=== PATIENT | female | born 1970 | race Caucasian/White ===

== ENCOUNTER 2022-06-16 08:00 | Day surgery (SDC) | payer BC ==
[2022-06-16] MEDS ORDERED: Succinylcholine Chloride 100 MG/5 ML SYRINGE FS ONE (15:03)
[2022-06-16] MEDS ORDERED: Dexamethasone 20 MG/5 ML VIAL ONE (15:03)
[2022-06-16] MEDS ORDERED: Rocuronium Bromide 10 MG/ML (10ML VIAL) ONE (15:03)
[2022-06-16] MEDS ORDERED: GLYCOPYRROLATE/PF 0.2 MG/ML VIAL ONE (15:03)
[2022-06-16] MEDS ORDERED: PROPOFOL 200 MG/20 ML VIAL ONE (15:03)
[2022-06-16] MEDS ORDERED: NEOSTIGMINE 3 MG/3 ML SYR 3 MG/3 ML SYRINGE ONE (15:03)
[2022-06-16] MEDS ORDERED: Ketorolac Tromethamine 30 MG/ML VIAL ONE (15:03)
[2022-06-16] MEDS ORDERED: Ondansetron PF 4 MG/2 ML Vial ONE (15:03)
== END 2022-06-16 08:01 | disposition home or self-care (01) ==
LOC: SDC 08:00
PROVIDERS: ATTEND Surgery
PROC: 0DTJ4ZZ Resection of Appendix, Percutaneous Endoscopic Approach (ICD-10-PCS; principal; 2022-06-16)
DX: K35.80 Unspecified acute appendicitis (principal); F17.210 Nicotine dependence, cigarettes, uncomplicated; E66.9 Obesity, unspecified; Z68.35 Body mass index [BMI] 35.0-35.9, adult
CPT/HCPCS: 88304; A4649; C1776; J1100; J1885; J2405; J2704; J3490

== ENCOUNTER 2022-11-13 12:30 | Outpatient (CLI) | payer BC | END 2022-11-13 12:31 | disposition home or self-care (01) | LOC: PET 12:30 | PROVIDERS: ATTEND Internal Medicine Hematology & Oncology | DX: C19 Malignant neoplasm of rectosigmoid junction (principal); R59.0 Localized enlarged lymph nodes; R91.8 Other nonspecific abnormal finding of lung field | CPT/HCPCS: 78815; A9552 ==

== ENCOUNTER 2022-12-07 09:37 | Day surgery (SDC) | payer BC ==
[2022-12-07 10:20] LABS: #Eosinphils 0.2 thou/uL (0.0-0.7); #Monocytes 0.4 thou/uL (0.11-0.59); #Neutrophils 4.6 thou/uL (1.40-6.50); %Basophils 0.6 % (0.0-1.0); %Eosinophils 2.6 % (0.0-10.0); %Lymphocytes 22.9 % (21.0-51.0); %Monocytes 6.5 % (0.0-10.0); %Neutrophils 66.8 % (42.0-75.0); Hemoglobin 14.1 g/dL (12.0-16.0); Mean Corpuscular HGB CONC 31.3 g/dL (32.0-36.0); Mean Platelet Volume 9.7 fL (7.4-10.4); Platelet Count 227 10x3/uL (130-400); RBC Distribution Width 14.1 % (11.5-14.5); Red Blood Cell (RBC) Count 5.23 mill/uL (4.20-5.40); White Blood Cell (WBC) Count 6.8 10x3/uL (4.8-10.8)
[2022-12-07 10:27] LABS: PTT 29.1 sec (22.9-36.1); Prothrombin Time 13.2 sec (12.0-14.7)
[2022-12-07 13:28] VITALS: BP 135/93; TEMP 98.2
== END 2022-12-07 14:45 | disposition home or self-care (01) ==
LOC: CT 09:37
PROVIDERS: ATTEND Internal Medicine Hematology & Oncology
DX: C19 Malignant neoplasm of rectosigmoid junction (principal); C78.7 Secondary malignant neoplasm of liver and intrahepatic bile duct; R91.8 Other nonspecific abnormal finding of lung field
CPT/HCPCS: 32408; 71045; 77002; 85025; 85610; 85730; 88305; 88333; 88341; 88342

== ENCOUNTER 2023-03-05 08:45 | Outpatient (CLI) | payer BC | END 2023-03-05 08:46 | disposition home or self-care (01) | LOC: PET 08:45 | PROVIDERS: ATTEND Internal Medicine Hematology & Oncology | DX: C19 Malignant neoplasm of rectosigmoid junction (principal) | CPT/HCPCS: 78815; A9552 ==

== ENCOUNTER 2023-06-06 11:42 | Outpatient (CLI) | payer BC | END 2023-06-06 11:43 | disposition home or self-care (01) | LOC: SCSMRI 11:42 | PROVIDERS: ATTEND Radiology Radiation Oncology | DX: C79.31 Secondary malignant neoplasm of brain (principal); R51.9 Headache, unspecified; G93.9 Disorder of brain, unspecified | CPT/HCPCS: 70553 ==

== ENCOUNTER 2023-06-14 20:26 | Inpatient (IN) | payer BC ==
[2023-06-14 20:43] LABS: Analyzer IN Cardio ER; Base Excess (BEa) -8.6 mEq/L (-2.0 to +3.0); Carboxyhemoglobin (COHb) 0.9 gm% (0.0-3.0); Hematocrit-ABG 41 % (36.0-47.0); Hemoglobin (Hb) 13.9 g/dL (12.0-16.0); O2 Tension (PaO2), arterial 84.2 mmHg (80.0-100.0); Potassium - ABG Lab 4.25 mmol/L (3.70-5.30)
[2023-06-14 20:48] LABS: Actual Bicarbonate (HCO3a) 13.1 mEq/L (22-28); CO2 Tension 19.7 mmHg (35.0-45.0); Puncture Site RRA
[2023-06-14 20:49] LABS: ALV-art Gradient 147.855 mmHg (0-20)
[2023-06-14 21:06] LABS: Anion Gap 21 mmol/L (10-20); BUN (Urea Nitrogen) 90 mg/dL (9.8-20.1); Calc. Creatinine Clearance 0 mL/min (70-130); Calcium 7.8 mg/dL (7.8-10.44); Carbon Dioxide 10 mmol/L (22-29); Chloride 107 mmol/L (98-107); Estimated GFR 45; Potassium 4.6 mmol/L (3.5-5.1); Sodium 133 mmol/L (136-145)
[2023-06-14] MEDS ORDERED: Dextrose 5 %-0.45 % NaCl 1,000 ML IV PRN (21:07)
[2023-06-14] MEDS ORDERED: Dextrose 50% Abboject 50 ML SYRINGE SLOW IVP PRN (21:07)
[2023-06-14] MEDS ORDERED: D5 1/2 NS w/20 mEq KCL 1,000 ML IV PRN (21:07)
[2023-06-14] MEDS ORDERED: Electrolyte Replacement Protocol 1 EACH IVPB PRN (21:07)
[2023-06-14] MEDS ORDERED: Sodium Chloride 0.9% 1,000 ML IV PRN ×4 (21:07)
[2023-06-14] MEDS ORDERED: NS 0.9% w/ 20 MEQ KCL 1,000 ML IV PRN ×2 (21:07)
[2023-06-14 21:12] LABS: Critical Call Chemistry NUR.MBP@2111; Glucose 451 mg/dL (70-105)
[2023-06-14] MEDS ORDERED: HUMULIN R 100 UNITS in Sodium Chloride 0.9% 100 ML IVPB SCH (21:15)
[2023-06-14] MEDS ORDERED: Acetaminophen 650 MG Suppository PR PRN (21:42)
[2023-06-14] MEDS ORDERED: Acetaminophen 325 MG (10.15 ML) UDCUP PO PRN (21:42)
[2023-06-14 21:54] LABS: Hemoglobin A1c 11.2 % (4.0-6.0)
[2023-06-14 21:55] LABS: Anion Gap 19 mmol/L (10-20); BUN (Urea Nitrogen) 92 mg/dL (9.8-20.1); Calc. Creatinine Clearance 0 mL/min (70-130); Calcium 7.9 mg/dL (7.8-10.44); Carbon Dioxide 12 mmol/L (22-29); Chloride 107 mmol/L (98-107); Estimated GFR 46; Potassium 4.9 mmol/L (3.5-5.1); Sodium 133 mmol/L (136-145)
[2023-06-14 22:40] LABS: Glucose 440 mg/dL (70-105)
[2023-06-15 02:14] LABS: Anion Gap 14 mmol/L (10-20); BUN (Urea Nitrogen) 82 mg/dL (9.8-20.1); Calc. Creatinine Clearance 115 mL/min (70-130); Calcium 7.2 mg/dL (7.8-10.44); Carbon Dioxide 17 mmol/L (22-29); Chloride 111 mmol/L (98-107); Estimated GFR 67; Glucose 393 mg/dL (70-105); Potassium 4.1 mmol/L (3.5-5.1); Sodium 138 mmol/L (136-145)
[2023-06-15] MEDS ORDERED: Sodium Chloride 0.9% 1,000 ML IV SCH ×2 (02:30→03:30)
[2023-06-15 04:35] LABS: Hematocrit 35.9 % (36.0-47.0); Hemoglobin 12.4 g/dL (12.0-16.0); Manual Diff?? YES; Mean Corpuscular HGB CONC 34.5 g/dL (32.0-36.0); Mean Corpuscular Hemoglobin 28.6 pg (27.0-31.0); Mean Corpuscular Volume 82.7 fl (78.0-98.0); RBC Distribution Width 17.4 % (11.5-14.5); Red Blood Cell (RBC) Count 4.34 mill/uL (4.20-5.40); White Blood Cell (WBC) Count 5.7 10x3/uL (4.8-10.8)
[2023-06-15 04:47] LABS: Delete Auto Diff?? YES; Platelet Count 12 10x3/uL (130-400)
[2023-06-15 05:00] LABS: Phosphorus 2.6 mg/dL (2.3-4.7)
[2023-06-15 05:02] LABS: Anion Gap 13 mmol/L (10-20); BUN (Urea Nitrogen) 77 mg/dL (9.8-20.1); Calc. Creatinine Clearance 133 mL/min (70-130); Calcium 7.4 mg/dL (7.8-10.44); Carbon Dioxide 17 mmol/L (22-29); Chloride 111 mmol/L (98-107); Estimated GFR 80; Glucose 385 mg/dL (70-105); Magnesium 2.5 mg/dL (1.6-2.6); Potassium 4.2 mmol/L (3.5-5.1); Sodium 137 mmol/L (136-145)
[2023-06-15] MEDS ORDERED: Glucagon 1 MG/ML KIT IM PRN (05:21)
[2023-06-15] MEDS ORDERED: Dextrose 5% in Water 1,000 ML IV PRN (05:21)
[2023-06-15] MEDS ORDERED: Dextrose 50% Abboject 50 ML SYRINGE SLOW IVP PRN (05:21)
[2023-06-15 05:25] LABS: Band 17 % (5-11); Burr Cells SLIGHT = 2-5 cells HPF (0-1); CellaVision Operator ID lab.abc; Lymphocytes 3 % (21-51); Monocytes 6 % (0-10); Neutrophil 75 % (42-75); Nucleated RBC (Manual Ct) 3 % (0); Platelet Adequacy Comment Significant decrease; Smudge Cells 25.2 %; Total Cell Count 103; Toxic Granulation SLIGHT; Vacuoles SLIGHT
[2023-06-15] MEDS ORDERED: Insulin Glargine 30 UNITS/0.3 ML VIAL SC SCH (05:30)
[2023-06-15] MEDS: Lactated Ringer's 1,000 ML IV SCH ×4 (05:35→20:43)
[2023-06-15] MEDS: HumaLOG 300 UNITS/3 ML VIAL SC PRN ×5 (06:02→20:47)
[2023-06-15 07:14] LABS: Anion Gap 13 mmol/L (10-20); BUN (Urea Nitrogen) 74 mg/dL (9.8-20.1); Calc. Creatinine Clearance 140 mL/min (70-130); Calcium 7.6 mg/dL (7.8-10.44); Carbon Dioxide 18 mmol/L (22-29); Chloride 112 mmol/L (98-107); Estimated GFR 85; Glucose 360 mg/dL (70-105); Potassium 4.5 mmol/L (3.5-5.1); Sodium 138 mmol/L (136-145)
[2023-06-15] MEDS ORDERED: FLU VACC QS2023-24(6MOS UP)/PF 60 MCG/0.5 ML SYRINGE IM ONE (09:00)
[2023-06-15] MEDS: Famotidine/PF 20 mg/2ml Vial SLOW IVP SCH ×2 (10:57→20:44)
[2023-06-15 14:29] LABS: Lactic Acid 2.9 mmol/L (0.5-2.2)
[2023-06-15 14:33] LABS: Anion Gap 14 mmol/L (10-20); BUN (Urea Nitrogen) 76 mg/dL (9.8-20.1); Calc. Creatinine Clearance 137 mL/min (70-130); Calcium 7.7 mg/dL (7.8-10.44); Carbon Dioxide 16 mmol/L (22-29); Chloride 112 mmol/L (98-107); Estimated GFR 83; Glucose 343 mg/dL (70-105); Magnesium 2.4 mg/dL (1.6-2.6); Potassium 4.2 mmol/L (3.5-5.1); Sodium 138 mmol/L (136-145)
[2023-06-15] MEDS ORDERED: Lactated Ringer's 1,000 ML IV SCH ×4 (15:00→22:45)
[2023-06-15] MEDS ORDERED: Morphine 2 MG/ML VIAL SLOW IVP PRN ×2 (16:04→17:07)
[2023-06-15] MEDS: Nystatin 500,000 UNITS/5 ML UDCUP SSW SCH ×2 (16:18→20:44)
[2023-06-15] MEDS: Cefepime 2 GM in Sodium Chloride 0.9% 100 ML IVPB SCH (18:08)
[2023-06-15 18:34] LABS: Bacteria/HPF 4+ HPF (None Seen); Bilirubin Negative (Negative); Blood, Urine 3+ (Negative); Clarity Turbid (Clear); Glucose, Urine (Dipstick) 150 mg/dL (Negative); Ketone, Urine Negative (Negative); Leukocyte 25 Leu/uL (Negative); Nitrite Negative (Negative); Protein, Urine (Dipstick) 100 mg/dL (Neg-Trace); RBC/HPF 21-50 HPF (0-3); Specific Gravity, Urine 1.025 (1.002-1.036); Squamous Epithelial None Seen HPF (0-3); WBC/HPF 0-3 HPF (0-3); pH, Urine 5.5 (5.0-9.0)
[2023-06-15] MEDS: Insulin Glargine 30 UNITS/0.3 ML VIAL SC SCH (20:44)
[2023-06-16] MEDS: HumaLOG 300 UNITS/3 ML VIAL SC PRN ×4 (00:37→16:44)
[2023-06-16] MEDS: Lactated Ringer's 1,000 ML IV SCH ×5 (00:44→22:45)
[2023-06-16 04:49] LABS: Hematocrit 31.9 % (36.0-47.0); Hemoglobin 11.1 g/dL (12.0-16.0); Manual Diff?? YES; Mean Corpuscular HGB CONC 34.8 g/dL (32.0-36.0); Mean Corpuscular Volume 83.3 fl (78.0-98.0); RBC Distribution Width 18.2 % (11.5-14.5); Red Blood Cell (RBC) Count 3.83 mill/uL (4.20-5.40); White Blood Cell (WBC) Count 5.1 10x3/uL (4.8-10.8)
[2023-06-16 05:02] LABS: Delete Auto Diff?? YES; Platelet Count 9 10x3/uL (130-400)
[2023-06-16 05:12] LABS: Phosphorus 2.4 mg/dL (2.3-4.7)
[2023-06-16 05:13] LABS: Anion Gap 11 mmol/L (10-20); BUN (Urea Nitrogen) 65 mg/dL (9.8-20.1); Calc. Creatinine Clearance 143 mL/min (70-130); Calcium 7.6 mg/dL (7.8-10.44); Carbon Dioxide 18 mmol/L (22-29); Chloride 115 mmol/L (98-107); Estimated GFR 88; Glucose 187 mg/dL (70-105); Potassium 4.2 mmol/L (3.5-5.1); Sodium 140 mmol/L (136-145)
[2023-06-16 05:39] LABS: Band 11 % (5-11); Burr Cells SLIGHT = 2-5 cells HPF (0-1); CellaVision Operator ID LAB.JMM; Lymphocytes 18 % (21-51); Macrocytosis SLIGHT = 6-15 cells HPF (0-5); Metamyelocyte 5 % (0-0); Monocytes 5 % (0-10); Neutrophil 56 % (42-75); Nucleated RBC (Manual Ct) 2 % (0); Ovalocytes SLIGHT = 2-5 cells HPF (0-1); Platelet Adequacy Comment Significant decrease; Poikilocytosis SLIGHT = 6-15 cells HPF (0-5); Polychromasia SLIGHT = 2-3 cells HPF (0-2); Reactive Lymphocytes 4 % (0-10); Smudge Cells 23.8 %; Total Cell Count 105
[2023-06-16] MEDS: Cefepime 2 GM in Sodium Chloride 0.9% 100 ML IVPB SCH (05:39)
[2023-06-16] MEDS ORDERED: Magnesium 2 GM/50 ML(in water) 2 GM in Premix 1 BAG IVPB SCH (08:00)
[2023-06-16] MEDS: Nystatin 500,000 UNITS/5 ML UDCUP SSW SCH ×4 (08:27→22:47)
[2023-06-16] MEDS: Famotidine/PF 20 mg/2ml Vial SLOW IVP SCH ×2 (08:28→23:41)
[2023-06-16] MEDS: Insulin Glargine 30 UNITS/0.3 ML VIAL SC SCH ×2 (08:28→23:40)
[2023-06-16] MEDS ORDERED: Furosemide 20 MG (2 mL) VIAL SLOW IVP SCH (09:15)
[2023-06-16] MEDS ORDERED: Meropenem 1 GM in Sodium Chloride 0.9% 100 ML IVPB SCH ×2 (17:45→22:00)
[2023-06-16] MEDS ORDERED: Vancomycin (BATCH) 2 GM in Premix 1 BAG IVPB SCH (18:00)
[2023-06-16] MEDS ORDERED: Iopamidol 15 ML ONE (18:48)
[2023-06-16] MEDS ORDERED: Albumin 25% 100 ML ONE (18:51)
[2023-06-16] MEDS ORDERED: Norepinephrine 4 MG/4 ML VIAL ONE (18:51)
[2023-06-16] MEDS ORDERED: Vasopressin 20 UNITS/ML VIAL ONE (18:51)
[2023-06-16] MEDS ORDERED: Etomidate 40 MG (20 mL) VIAL ONE (19:27)
[2023-06-16] MEDS ORDERED: Rocuronium Bromide 10 MG/ML (10ML VIAL) ONE ×3 (19:34→21:05)
[2023-06-16] MEDS ORDERED: fentaNYL PF 100 MCG/2 ML SYRINGE ONE (19:35)
[2023-06-16] MEDS ORDERED: PHENYLEPHRINE-NS 100 MCG/ML 10 ML SYRINGE ONE ×2 (19:35→20:13)
[2023-06-16 19:55] LABS: Hematocrit 30.2 % (36.0-47.0); Hemoglobin 10.3 g/dL (12.0-16.0); Manual Diff?? YES; Mean Corpuscular HGB CONC 34.1 g/dL (32.0-36.0); Mean Corpuscular Hemoglobin 29.2 pg (27.0-31.0); Mean Corpuscular Volume 85.6 fl (78.0-98.0); Mean Platelet Volume 11.8 fL (7.4-10.4); RBC Distribution Width 18.6 % (11.5-14.5); Red Blood Cell (RBC) Count 3.53 mill/uL (4.20-5.40); White Blood Cell (WBC) Count 4.3 10x3/uL (4.8-10.8)
[2023-06-16 19:56] LABS: Delete Auto Diff?? YES; Platelet Count 31 10x3/uL (130-400)
[2023-06-16] MEDS ORDERED: Magnesium Citrate 300 ML BOT PER TUBE SCH (20:00)
[2023-06-16] MEDS ORDERED: Fleet Saline Enema 133 ML BOT PR SCH (20:00)
[2023-06-16 20:16] LABS: Anisocytosis SLIGHT = 6-15 cells HPF (0-5); Band 10 % (5-11); CellaVision Operator ID LAB.KB; Dohle Bodies SLIGHT; Large Platelets 2.9 % (0-5); Lymphocytes 12 % (21-51); Monocytes 4 % (0-10); Neutrophil 75 % (42-75); Nucleated RBC (Manual Ct) 3 % (0); Platelet Adequacy Comment Platelets Decreased; Polychromasia SLIGHT = 2-3 cells HPF (0-2); Smudge Cells 19.6 %; Total Cell Count 102; Toxic Granulation SLIGHT
[2023-06-16] MEDS ORDERED: Ventilator Sedation Protocol 1 EACH FS SCH (20:30)
[2023-06-16] MEDS ORDERED: Lorazepam 2 MG/ML VIAL SLOW IVP PRN (20:45)
[2023-06-16] MEDS ORDERED: Propofol BOLUS 1,000 MG/100 ML VIAL IV PRN (20:45)
[2023-06-16] MEDS ORDERED: Fentanyl BOLUS 250 ML IVPB PRN (20:45)
[2023-06-16] MEDS ORDERED: DISCONTINUE PREVIOUS NARCOTIC PAIN MEDICATIONS AND BENZODIAZEPINES FS SCH (20:45)
[2023-06-16] MEDS ORDERED: Morphine 2 MG/ML VIAL SLOW IVP PRN (20:45)
[2023-06-16] MEDS ORDERED: Vancomycin 1 GM in Premix 1 BAG IVPB SCH (21:00)
[2023-06-16] MEDS: Propofol 1,000 MG/100 ML VIAL IV PRN (21:43)
[2023-06-16 21:55] LABS: Actual Bicarbonate (HCO3a) 19.3 mEq/L (22-28); Base Excess (BEa) -7.3 mEq/L (-2.0 to +3.0); CO2 Tension 43.5 mmHg (35.0-45.0); Calcium, Ionized (arterial) 1.15 mmol/L (1.12-1.30); Carboxyhemoglobin (COHb) 0.8 gm% (0.0-3.0); Hematocrit-ABG 32 % (36.0-47.0); O2 Tension (PaO2), arterial 94.2 mmHg (80.0-100.0); Potassium - ABG Lab 3.85 mmol/L (3.70-5.30); pH, Arterial 7.266 (7.35-7.45)
[2023-06-16 21:57] LABS: Puncture Site LINE
[2023-06-16 21:58] LABS: ALV-art Gradient 564.425 mmHg (0-20)
[2023-06-16] MEDS: Albuterol 2.5 MG (3 mL) NEB EZPAP SCH (23:46)
[2023-06-17] MEDS: Fentanyl CADD 100 ML IV SCH (00:29)
[2023-06-17] MEDS: Meropenem 1 GM in Sodium Chloride 0.9% 100 ML IVPB SCH ×3 (02:12→18:21)
[2023-06-17] MEDS: Lactated Ringer's 1,000 ML IV SCH ×4 (02:20→20:53)
[2023-06-17] MEDS ORDERED: Magnesium Citrate 300 ML BOT PER TUBE SCH (04:00)
[2023-06-17 04:10] LABS: Hematocrit 26.3 % (36.0-47.0); Hemoglobin 8.6 g/dL (12.0-16.0); Manual Diff?? YES; Mean Corpuscular HGB CONC 32.7 g/dL (32.0-36.0); Mean Corpuscular Hemoglobin 28.4 pg (27.0-31.0); Mean Corpuscular Volume 86.8 fl (78.0-98.0); Mean Platelet Volume 11.1 fL (7.4-10.4); RBC Distribution Width 18.7 % (11.5-14.5); Red Blood Cell (RBC) Count 3.03 mill/uL (4.20-5.40); White Blood Cell (WBC) Count 3.2 10x3/uL (4.8-10.8)
[2023-06-17 04:22] LABS: INR-International Normal Ratio 1.3; Prothrombin Time 16.4 sec (12.0-14.7)
[2023-06-17 04:28] LABS: Anion Gap 13 mmol/L (10-20); BUN (Urea Nitrogen) 56 mg/dL (9.8-20.1); Calc. Creatinine Clearance 145 mL/min (70-130); Calcium 7.7 mg/dL (7.8-10.44); Carbon Dioxide 18 mmol/L (22-29); Chloride 116 mmol/L (98-107); Delete Auto Diff?? YES; Estimated GFR 81; Glucose 231 mg/dL (70-105); Platelet Count 32 10x3/uL (130-400); Potassium 3.5 mmol/L (3.5-5.1); Sodium 143 mmol/L (136-145)
[2023-06-17 04:56] LABS: Band 7 % (5-11); CellaVision Operator ID lab.abc; Lymphocytes 14 % (21-51); Monocytes 3 % (0-10); Myelocyte 1 % (0-0); Neutrophil 75 % (42-75); Nucleated RBC (Manual Ct) 1 % (0); Platelet Adequacy Comment Significant decrease; Polychromasia SLIGHT = 2-3 cells HPF (0-2); RBC Morphology Within Normal Limits; Smudge Cells 33.3 %; Total Cell Count 87
[2023-06-17] MEDS: Vancomycin (BATCH) 1.25 GM in Premix 1 BAG IVPB SCH ×2 (05:56→20:33)
[2023-06-17] MEDS ORDERED: Fleet Saline Enema 133 ML BOT PR SCH (06:00)
[2023-06-17] MEDS: Albuterol 2.5 MG (3 mL) NEB EZPAP SCH ×3 (07:10→19:11)
[2023-06-17] MEDS: Propofol 1,000 MG/100 ML VIAL IV PRN ×2 (08:00→16:07)
[2023-06-17] MEDS ORDERED: Potassium Chloride 40 MEQ in Premix 1 BAG IVPB SCH (08:00)
[2023-06-17] MEDS ORDERED: Potassium Chloride 20 MEQ in Premix 1 BAG IVPB SCH (08:00)
[2023-06-17] MEDS ORDERED: Sodium Bicarbonate 2.5 MEQ/5 ML SDV ONE (08:14)
[2023-06-17 09:00] LABS: Actual Bicarbonate (HCO3a) 18.5 mEq/L (22-28); Base Excess (BEa) -4.3 mEq/L (-2.0 to +3.0); CO2 Tension 26.6 mmHg (35.0-45.0); Carboxyhemoglobin (COHb) 0.3 gm% (0.0-3.0); Hematocrit-ABG 27 % (36.0-47.0); Hemoglobin (Hb) 9.3 g/dL (12.0-16.0); O2 Tension (PaO2), arterial 73.5 mmHg (80.0-100.0); Potassium - ABG Lab 3.36 mmol/L (3.70-5.30); pH, Arterial 7.461 (7.35-7.45)
[2023-06-17] MEDS: Famotidine/PF 20 mg/2ml Vial SLOW IVP SCH ×2 (10:10→20:32)
[2023-06-17] MEDS: Insulin Glargine 30 UNITS/0.3 ML VIAL SC SCH ×2 (10:10→20:35)
[2023-06-17] MEDS: Nystatin 500,000 UNITS/5 ML UDCUP SSW SCH ×4 (10:11→20:33)
[2023-06-17] MEDS: HumaLOG 300 UNITS/3 ML VIAL SC PRN ×2 (10:18→16:06)
[2023-06-17 15:26] LABS: Potassium 3.5 mmol/L (3.5-5.1)
[2023-06-18] MEDS: Albuterol 2.5 MG (3 mL) NEB EZPAP SCH ×4 (00:44→19:00)
[2023-06-18] MEDS: Propofol 1,000 MG/100 ML VIAL IV PRN ×3 (01:15→23:39)
[2023-06-18] MEDS: Meropenem 1 GM in Sodium Chloride 0.9% 100 ML IVPB SCH ×3 (01:15→17:16)
[2023-06-18] MEDS: Fentanyl CADD 100 ML IV SCH (02:56)
[2023-06-18 05:04] LABS: Hematocrit 24.5 % (36.0-47.0); Manual Diff?? YES; Mean Corpuscular HGB CONC 32.7 g/dL (32.0-36.0); Mean Corpuscular Hemoglobin 28.8 pg (27.0-31.0); Mean Corpuscular Volume 88.1 fl (78.0-98.0); Red Blood Cell (RBC) Count 2.78 mill/uL (4.20-5.40); White Blood Cell (WBC) Count 2.9 10x3/uL (4.8-10.8)
[2023-06-18 05:28] LABS: Anion Gap 10 mmol/L (10-20); BUN (Urea Nitrogen) 43 mg/dL (9.8-20.1); Calc. Creatinine Clearance 201 mL/min (70-130); Calcium 7.3 mg/dL (7.8-10.44); Carbon Dioxide 20 mmol/L (22-29); Chloride 115 mmol/L (98-107); Estimated GFR 105; Glucose 134 mg/dL (70-105); Potassium 3.3 mmol/L (3.5-5.1); Sodium 142 mmol/L (136-145)
[2023-06-18 06:06] LABS: Delete Auto Diff?? YES; Platelet Count 30 10x3/uL (130-400)
[2023-06-18] MEDS: Vancomycin (BATCH) 1.25 GM in Premix 1 BAG IVPB SCH (06:09)
[2023-06-18 07:05] LABS: Anisocytosis SLIGHT = 6-15 cells HPF (0-5); Band 12 % (5-11); CellaVision Operator ID LAB.JMM; Lymphocytes 8 % (21-51); Monocytes 5 % (0-10); Neutrophil 75 % (42-75); Nucleated RBC (Manual Ct) 1 % (0); Ovalocytes SLIGHT = 2-5 cells HPF (0-1); Platelet Adequacy Comment Platelets Decreased; Polychromasia MODERATE = 3-4 cells HPF (0-2); Smudge Cells 21.2 %; Total Cell Count 99
[2023-06-18] MEDS ORDERED: Potassium Bicarbonate/Cit Ac 20 MEQ TAB PO SCH (08:00)
[2023-06-18 08:21] LABS: Actual Bicarbonate (HCO3a) 19.2 mEq/L (22-28); Base Excess (BEa) -3.5 mEq/L (-2.0 to +3.0); CO2 Tension 26.7 mmHg (35.0-45.0); Calcium, Ionized (arterial) 1.11 mmol/L (1.12-1.30); Carboxyhemoglobin (COHb) 0.6 gm% (0.0-3.0); Hematocrit-ABG 26 % (36.0-47.0); O2 Tension (PaO2), arterial 82.9 mmHg (80.0-100.0); Potassium - ABG Lab 3.59 mmol/L (3.70-5.30); pH, Arterial 7.475 (7.35-7.45)
[2023-06-18 08:23] LABS: ALV-art Gradient 168.925 mmHg (0-20); Puncture Site A-Line
[2023-06-18] MEDS: Insulin Glargine 30 UNITS/0.3 ML VIAL SC SCH ×2 (09:59→21:38)
[2023-06-18] MEDS: Famotidine/PF 20 mg/2ml Vial SLOW IVP SCH ×2 (10:00→21:50)
[2023-06-18] MEDS: Nystatin 500,000 UNITS/5 ML UDCUP SSW SCH ×4 (10:00→21:40)
[2023-06-18] MEDS: Lactated Ringer's 1,000 ML IV SCH (11:44)
[2023-06-19] MEDS: Albuterol 2.5 MG (3 mL) NEB EZPAP SCH ×4 (00:50→18:38)
[2023-06-19] MEDS: Meropenem 1 GM in Sodium Chloride 0.9% 100 ML IVPB SCH ×3 (02:06→17:27)
[2023-06-19 05:08] LABS: Hematocrit 23.4 % (36.0-47.0); Hemoglobin 7.7 g/dL (12.0-16.0); Manual Diff?? YES; Mean Corpuscular HGB CONC 32.9 g/dL (32.0-36.0); Mean Corpuscular Hemoglobin 29.1 pg (27.0-31.0); Mean Corpuscular Volume 88.3 fl (78.0-98.0); Mean Platelet Volume 10.5 fL (7.4-10.4); Red Blood Cell (RBC) Count 2.65 mill/uL (4.20-5.40); White Blood Cell (WBC) Count 2.4 10x3/uL (4.8-10.8)
[2023-06-19 05:55] LABS: Delete Auto Diff?? YES; Platelet Count 56 10x3/uL (130-400)
[2023-06-19 06:46] LABS: Band 16 % (5-11); CellaVision Operator ID LAB.GE; Large Platelets 9.6 % (0-5); Lymphocytes 6 % (21-51); Metamyelocyte 1 % (0-0); Monocytes 11 % (0-10); Neutrophil 64 % (42-75); Platelet Adequacy Comment Platelets Decreased; Polychromasia MODERATE = 3-4 cells HPF (0-2); Reactive Lymphocytes 3 % (0-10); Total Cell Count 104
[2023-06-19 07:41] LABS: Anion Gap 10 mmol/L (10-20); BUN (Urea Nitrogen) 30 mg/dL (9.8-20.1); Calc. Creatinine Clearance 233 mL/min (70-130); Calcium 7.2 mg/dL (7.8-10.44); Carbon Dioxide 20 mmol/L (22-29); Chloride 119 mmol/L (98-107); Estimated GFR 108; Glucose 115 mg/dL (70-105); Potassium 3.4 mmol/L (3.5-5.1); Sodium 146 mmol/L (136-145)
[2023-06-19] MEDS ORDERED: Potassium Bicarbonate/Cit Ac 20 MEQ TAB PO SCH (08:00)
[2023-06-19] MEDS: Nystatin 500,000 UNITS/5 ML UDCUP SSW SCH ×4 (08:46→20:26)
[2023-06-19] MEDS: Lactated Ringer's 1,000 ML IV SCH (08:46)
[2023-06-19] MEDS: Insulin Glargine 30 UNITS/0.3 ML VIAL SC SCH ×2 (08:47→20:26)
[2023-06-19] MEDS: Pantoprazole 40 MG VIAL IVP SCH ×2 (08:47→20:26)
[2023-06-19] MEDS ORDERED: Furosemide 40 MG (4 mL) VIAL IVP SCH (09:54)
[2023-06-19] MEDS: HYDROcodone/Acetaminophen 10/325 mg Tablet PO PRN (14:24)
[2023-06-19] MEDS ORDERED: Metoprolol Tartrate 5 MG (5 mL) VIAL IVP SCH (16:00)
[2023-06-19 18:11] LABS: Anion Gap 12 mmol/L (10-20); BUN (Urea Nitrogen) 25 mg/dL (9.8-20.1); Calc. Creatinine Clearance 225 mL/min (70-130); Calcium 7.5 mg/dL (7.8-10.44); Carbon Dioxide 23 mmol/L (22-29); Chloride 117 mmol/L (98-107); Estimated GFR 107; Glucose 101 mg/dL (70-105); Magnesium 2.3 mg/dL (1.6-2.6); Potassium 3.5 mmol/L (3.5-5.1); Sodium 148 mmol/L (136-145)
[2023-06-20] MEDS: Meropenem 1 GM in Sodium Chloride 0.9% 100 ML IVPB SCH ×3 (00:34→17:44)
[2023-06-20] MEDS: Albuterol 2.5 MG (3 mL) NEB EZPAP SCH ×4 (02:51→18:15)
[2023-06-20 05:47] LABS: Hematocrit 26.3 % (36.0-47.0); Hemoglobin 8.3 g/dL (12.0-16.0); Manual Diff?? YES; Mean Corpuscular HGB CONC 31.6 g/dL (32.0-36.0); Mean Corpuscular Hemoglobin 28.5 pg (27.0-31.0); Mean Corpuscular Volume 90.4 fl (78.0-98.0); Mean Platelet Volume 11.1 fL (7.4-10.4); Platelet Count 116 10x3/uL (130-400); RBC Distribution Width 18.8 % (11.5-14.5); Red Blood Cell (RBC) Count 2.91 mill/uL (4.20-5.40); White Blood Cell (WBC) Count 3.4 10x3/uL (4.8-10.8)
[2023-06-20 06:15] LABS: Delete Auto Diff?? YES
[2023-06-20 06:18] LABS: Anion Gap 13 mmol/L (10-20); BUN (Urea Nitrogen) 29 mg/dL (9.8-20.1); Calc. Creatinine Clearance 225 mL/min (70-130); Calcium 7.4 mg/dL (7.8-10.44); Carbon Dioxide 21 mmol/L (22-29); Chloride 112 mmol/L (98-107); Estimated GFR 107; Glucose 135 mg/dL (70-105); Potassium 3.5 mmol/L (3.5-5.1); Sodium 142 mmol/L (136-145)
[2023-06-20] MEDS: Ondansetron ODT 4 MG TAB PO PRN ×2 (08:31→21:49)
[2023-06-20] MEDS: Pantoprazole 40 MG VIAL IVP SCH ×2 (08:32→21:48)
[2023-06-20] MEDS: Nystatin 500,000 UNITS/5 ML UDCUP SSW SCH ×4 (08:32→21:49)
[2023-06-20] MEDS: Insulin Glargine 30 UNITS/0.3 ML VIAL SC SCH ×2 (08:32→21:49)
[2023-06-20 09:14] LABS: Band 19 % (5-11); Lymphocytes 20 % (21-51); Metamyelocyte 1 % (0-0); Monocytes 6 % (0-10); Neutrophil 54 % (42-75)
[2023-06-20 09:15] LABS: Platelet Adequacy Comment Platelets Decreased; Polychromasia SLIGHT = 2-3 cells (100X) (0-2/hpf)
[2023-06-20] MEDS ORDERED: Potassium Bicarbonate/Cit Ac 20 MEQ TAB PO SCH (12:30)
[2023-06-20] MEDS: HumaLOG 300 UNITS/3 ML VIAL SC PRN ×2 (12:32→17:44)
[2023-06-20] MEDS ORDERED: Furosemide 40 MG (4 mL) VIAL IVP SCH (13:28)
[2023-06-20 18:23] LABS: Potassium 3.9 mmol/L (3.5-5.1)
[2023-06-20] MEDS: HYDROcodone/Acetaminophen 10/325 mg Tablet PO PRN (21:48)
[2023-06-21] MEDS: Albuterol 2.5 MG (3 mL) NEB EZPAP SCH ×5 (00:23→23:06)
[2023-06-21] MEDS: HumaLOG 300 UNITS/3 ML VIAL SC PRN (01:15)
[2023-06-21] MEDS: Meropenem 1 GM in Sodium Chloride 0.9% 100 ML IVPB SCH ×3 (03:04→17:17)
[2023-06-21 06:45] LABS: Hematocrit 26.8 % (36.0-47.0); Hemoglobin 8.6 g/dL (12.0-16.0); Manual Diff?? YES; Mean Corpuscular HGB CONC 32.1 g/dL (32.0-36.0); Mean Corpuscular Hemoglobin 28.9 pg (27.0-31.0); Mean Corpuscular Volume 89.9 fl (78.0-98.0); Mean Platelet Volume 10.3 fL (7.4-10.4); Platelet Count 177 10x3/uL (130-400); Red Blood Cell (RBC) Count 2.98 mill/uL (4.20-5.40); White Blood Cell (WBC) Count 4.9 10x3/uL (4.8-10.8)
[2023-06-21 06:48] LABS: Delete Auto Diff?? YES
[2023-06-21 07:18] LABS: Anion Gap 11 mmol/L (10-20); BUN (Urea Nitrogen) 33 mg/dL (9.8-20.1); Calc. Creatinine Clearance 227 mL/min (70-130); Calcium 7.8 mg/dL (7.8-10.44); Carbon Dioxide 25 mmol/L (22-29); Chloride 104 mmol/L (98-107); Estimated GFR 107; Glucose 182 mg/dL (70-105); Potassium 4.3 mmol/L (3.5-5.1); Sodium 136 mmol/L (136-145)
[2023-06-21 07:22] LABS: Band 26 % (5-11); CellaVision Operator ID LAB.GE; Lymphocytes 11 % (21-51); Monocytes 6 % (0-10); Neutrophil 57 % (42-75); Nucleated RBC (Manual Ct) 6 % (0); Platelet Adequacy Comment Platelets Normal; Polychromasia MODERATE = 3-4 cells HPF (0-2); Total Cell Count 100
[2023-06-21] MEDS: Enoxaparin 40 MG (0.4 mL) SYRINGE SC SCH (09:15)
[2023-06-21] MEDS: Furosemide 40 MG (4 mL) VIAL IVP SCH (09:16)
[2023-06-21] MEDS: Insulin Glargine 30 UNITS/0.3 ML VIAL SC SCH ×2 (09:17→21:11)
[2023-06-21] MEDS: Nystatin 500,000 UNITS/5 ML UDCUP SSW SCH ×4 (09:17→21:18)
[2023-06-21] MEDS: Pantoprazole 40 MG VIAL IVP SCH ×2 (09:18→21:15)
[2023-06-21] MEDS ORDERED: Iopamidol-370 76% 500 ML MDV (1 ML CHARGE) ONE (10:59)
[2023-06-21] MEDS: Ondansetron ODT 4 MG TAB PO PRN ×2 (11:15→21:18)
[2023-06-21] MEDS: Metoprolol Tartrate 25 MG TAB PO SCH ×2 (15:21→21:15)
[2023-06-21] MEDS: HYDROcodone/Acetaminophen 10/325 mg Tablet PO PRN (21:15)
[2023-06-21] MEDS: Calcium Carbonate 500 MG ChewTAB PO PRN (21:20)
[2023-06-22] MEDS: Meropenem 1 GM in Sodium Chloride 0.9% 100 ML IVPB SCH ×3 (01:25→17:46)
[2023-06-22] MEDS: HYDROcodone/Acetaminophen 10/325 mg Tablet PO PRN (03:25)
[2023-06-22 04:32] LABS: #Monocytes 0.3 thou/uL (0.11-0.59); #Neutrophils 3.3 thou/uL (1.40-6.50); %Basophils 0.2 % (0.0-1.0); %Lymphocytes 26.8 % (21.0-51.0); %Monocytes 5.2 % (0.0-10.0); Hematocrit 23.3 % (36.0-47.0); Hemoglobin 7.6 g/dL (12.0-16.0); Manual Diff?? YES; Mean Corpuscular HGB CONC 32.6 g/dL (32.0-36.0); Mean Corpuscular Hemoglobin 29.1 pg (27.0-31.0); Mean Corpuscular Volume 89.3 fl (78.0-98.0); Platelet Count 194 10x3/uL (130-400); RBC Distribution Width 17.4 % (11.5-14.5); Red Blood Cell (RBC) Count 2.61 mill/uL (4.20-5.40); White Blood Cell (WBC) Count 5.2 10x3/uL (4.8-10.8)
[2023-06-22 04:34] LABS: Critical Call w/ Read Back 0
[2023-06-22 04:52] LABS: Anion Gap 11 mmol/L (10-20); BUN (Urea Nitrogen) 22 mg/dL (9.8-20.1); Calc. Creatinine Clearance 258 mL/min (70-130); Calcium 7.5 mg/dL (7.8-10.44); Carbon Dioxide 26 mmol/L (22-29); Chloride 103 mmol/L (98-107); Estimated GFR 110; Glucose 134 mg/dL (70-105); Sodium 136 mmol/L (136-145)
[2023-06-22 04:55] LABS: Band 29 % (5-11); CellaVision Operator ID LAB.CLH1; Hypochromia SLIGHT = 6-15 cells HPF (0-5); Lymphocytes 9 % (21-51); Monocytes 8 % (0-10); Myelocyte 1 % (0-0); Neutrophil 54 % (42-75); Nucleated RBC (Manual Ct) 3 % (0); Platelet Adequacy Comment Platelets Normal; Polychromasia MODERATE = 3-4 cells HPF (0-2); Total Cell Count 101
[2023-06-22] MEDS: Albuterol 2.5 MG (3 mL) NEB EZPAP SCH ×4 (07:06→23:05)
[2023-06-22] MEDS: Furosemide 40 MG (4 mL) VIAL IVP SCH (09:53)
[2023-06-22] MEDS: Enoxaparin 40 MG (0.4 mL) SYRINGE SC SCH (09:53)
[2023-06-22] MEDS: Nystatin 500,000 UNITS/5 ML UDCUP SSW SCH ×4 (09:54→20:51)
[2023-06-22] MEDS: Insulin Glargine 30 UNITS/0.3 ML VIAL SC SCH ×2 (09:54→20:51)
[2023-06-22] MEDS: Pantoprazole 40 MG VIAL IVP SCH ×2 (09:54→20:51)
[2023-06-22] MEDS: Metoprolol Tartrate 25 MG TAB PO SCH ×4 (09:54→21:01)
[2023-06-23] MEDS: Meropenem 1 GM in Sodium Chloride 0.9% 100 ML IVPB SCH ×3 (01:40→17:13)
[2023-06-23] MEDS: Ondansetron ODT 4 MG TAB PO PRN (02:36)
[2023-06-23] MEDS: Calcium Carbonate 500 MG ChewTAB PO PRN (02:37)
[2023-06-23] MEDS: HYDROcodone/Acetaminophen 10/325 mg Tablet PO PRN (03:07)
[2023-06-23] MEDS ORDERED: Promethazine HCl 12.5 MG in Sodium Chloride 0.9% 50 ML IVPB SCH (03:45)
[2023-06-23 04:41] LABS: Anion Gap 12 mmol/L (10-20); BUN (Urea Nitrogen) 17 mg/dL (9.8-20.1); Calc. Creatinine Clearance 262 mL/min (70-130); Calcium 7.7 mg/dL (7.8-10.44); Carbon Dioxide 26 mmol/L (22-29); Chloride 102 mmol/L (98-107); Estimated GFR 111; Glucose 126 mg/dL (70-105); Potassium 3.7 mmol/L (3.5-5.1); Sodium 136 mmol/L (136-145)
[2023-06-23] MEDS: Albuterol 2.5 MG (3 mL) NEB EZPAP SCH ×4 (08:33→23:58)
[2023-06-23] MEDS: Enoxaparin 40 MG (0.4 mL) SYRINGE SC SCH (10:49)
[2023-06-23] MEDS: Insulin Glargine 30 UNITS/0.3 ML VIAL SC SCH ×2 (10:49→20:32)
[2023-06-23] MEDS: Pantoprazole 40 MG VIAL IVP SCH ×2 (10:49→20:27)
[2023-06-23] MEDS: Metoprolol Tartrate 25 MG TAB PO SCH ×3 (10:49→20:32)
[2023-06-23] MEDS: Furosemide 40 MG (4 mL) VIAL IVP SCH (10:49)
[2023-06-23] MEDS: Nystatin 500,000 UNITS/5 ML UDCUP SSW SCH ×4 (10:50→20:33)
[2023-06-23] MEDS ORDERED: Metoprolol Tartrate 5 MG (5 mL) VIAL ONE ×2 (11:47→13:49)
[2023-06-23] MEDS ORDERED: Sodium Chloride 0.9% 500 ML IV SCH ×2 (14:30→21:15)
[2023-06-24] MEDS: Meropenem 1 GM in Sodium Chloride 0.9% 100 ML IVPB SCH ×3 (01:37→17:42)
[2023-06-24 04:09] LABS: Hematocrit 20.6 % (36.0-47.0); Hemoglobin 6.6 g/dL (12.0-16.0); Manual Diff?? YES; Mean Corpuscular Hemoglobin 28.9 pg (27.0-31.0); Mean Corpuscular Volume 90.4 fl (78.0-98.0); Mean Platelet Volume 9.8 fL (7.4-10.4); Platelet Count 197 10x3/uL (130-400); RBC Distribution Width 18.1 % (11.5-14.5); Red Blood Cell (RBC) Count 2.28 mill/uL (4.20-5.40); White Blood Cell (WBC) Count 4.8 10x3/uL (4.8-10.8)
[2023-06-24 04:16] LABS: Delete Auto Diff?? YES
[2023-06-24 04:31] LABS: ALT (SGPT) 21 U/L (8-55); AST (SGOT) 25 U/L (5-34); Albumin 1.7 g/dL (3.5-5.0); Alkaline Phosphatase 86 U/L (40-110); Anion Gap 11 mmol/L (10-20); BUN (Urea Nitrogen) 16 mg/dL (9.8-20.1); Bilirubin, Total 0.7 mg/dL (0.2-1.2); Calc. Creatinine Clearance 333 mL/min (70-130); Calcium 7.3 mg/dL (7.8-10.44); Carbon Dioxide 26 mmol/L (22-29); Chloride 104 mmol/L (98-107); Estimated GFR 118; Globulin 2.7 g/dL (2.4-3.5); Glucose 90 mg/dL (70-105); Magnesium 1.3 mg/dL (1.6-2.6); Potassium 3.2 mmol/L (3.5-5.1); Protein, Total 4.4 g/dL (6.0-8.3); Sodium 138 mmol/L (136-145)
[2023-06-24 04:38] LABS: Band 16 % (5-11); Hypochromia SLIGHT = 6-15 cells (100X) (0-5/hpf); Lymphocytes 12 % (21-51); Monocytes 3 % (0-10); Neutrophil 69 % (42-75); Nucleated RBC (Manual Ct) 2 % (0)
[2023-06-24 04:39] LABS: Platelet Adequacy Comment Platelets Normal
[2023-06-24] MEDS: Albuterol 2.5 MG (3 mL) NEB EZPAP SCH ×4 (06:28→23:43)
[2023-06-24] MEDS ORDERED: Potassium Chloride 40 MEQ in Premix 1 BAG IVPB SCH (06:30)
[2023-06-24] MEDS ORDERED: Magnesium Sulfate In Water 4 GM in Premix 1 BAG IVPB SCH (06:30)
[2023-06-24] MEDS: Furosemide 40 MG (4 mL) VIAL IVP SCH (09:00)
[2023-06-24] MEDS: Nystatin 500,000 UNITS/5 ML UDCUP SSW SCH ×4 (09:36→21:31)
[2023-06-24] MEDS: Pantoprazole 40 MG VIAL IVP SCH ×2 (09:36→21:27)
[2023-06-24] MEDS: Enoxaparin 40 MG (0.4 mL) SYRINGE SC SCH (09:51)
[2023-06-24] MEDS: Insulin Glargine 30 UNITS/0.3 ML VIAL SC SCH ×2 (09:51→21:31)
[2023-06-24 10:26] LABS: Hematocrit 22.9 % (36.0-47.0); Hemoglobin 7.2 g/dL (12.0-16.0)
[2023-06-24] MEDS: Metoprolol Tartrate 25 MG TAB PO SCH ×3 (10:31→21:31)
[2023-06-24 16:57] LABS: Potassium 3.6 mmol/L (3.5-5.1)
[2023-06-24] MEDS ORDERED: diphenhydrAMINE 25 MG in Sodium Chloride 0.9% 50 ML IVPB SCH (21:00)
[2023-06-24] MEDS ORDERED: diphenhydrAMINE 50 MG/ML VIAL IVP SCH (21:15)
[2023-06-24] MEDS: Morphine 2 MG/ML VIAL SLOW IVP PRN (21:25)
[2023-06-25] MEDS: Meropenem 1 GM in Sodium Chloride 0.9% 100 ML IVPB SCH ×3 (01:44→17:19)
[2023-06-25 05:15] LABS: Hematocrit 23.2 % (36.0-47.0); Hemoglobin 7.4 g/dL (12.0-16.0); Manual Diff?? YES; Mean Corpuscular HGB CONC 31.9 g/dL (32.0-36.0); Mean Corpuscular Hemoglobin 28.9 pg (27.0-31.0); Mean Corpuscular Volume 90.6 fl (78.0-98.0); Mean Platelet Volume 9.5 fL (7.4-10.4); Platelet Count 219 10x3/uL (130-400); RBC Distribution Width 18.2 % (11.5-14.5); Red Blood Cell (RBC) Count 2.56 mill/uL (4.20-5.40); White Blood Cell (WBC) Count 5.6 10x3/uL (4.8-10.8)
[2023-06-25 05:25] LABS: Delete Auto Diff?? YES
[2023-06-25 05:41] LABS: Phosphorus 2.7 mg/dL (2.3-4.7)
[2023-06-25 05:42] LABS: Anion Gap 14 mmol/L (10-20); BUN (Urea Nitrogen) 14 mg/dL (9.8-20.1); Calc. Creatinine Clearance 265 mL/min (70-130); Calcium 7.6 mg/dL (7.8-10.44); Carbon Dioxide 25 mmol/L (22-29); Chloride 104 mmol/L (98-107); Estimated GFR 112; Glucose 91 mg/dL (70-105); Magnesium 1.7 mg/dL (1.6-2.6); Potassium 3.3 mmol/L (3.5-5.1); Sodium 140 mmol/L (136-145)
[2023-06-25] MEDS ORDERED: Potassium Chloride 40 MEQ in Premix 1 BAG IVPB SCH (06:30)
[2023-06-25] MEDS ORDERED: Magnesium 2 GM/50 ML(in water) 2 GM in Premix 1 BAG IVPB SCH (06:30)
[2023-06-25 06:34] LABS: Band 8 % (5-11); Lymphocytes 20 % (21-51); Metamyelocyte 1 % (0-0); Monocytes 3 % (0-10); Neutrophil 68 % (42-75); Nucleated RBC (Manual Ct) 1 % (0)
[2023-06-25 06:39] LABS: Anisocytosis SLIGHT = 6-15 cells (100X) (0-5/hpf); Platelet Adequacy Comment Platelets Normal; Polychromasia SLIGHT = 2-3 cells (100X) (0-2/hpf)
[2023-06-25] MEDS: Albuterol 2.5 MG (3 mL) NEB EZPAP SCH ×4 (06:53→22:57)
[2023-06-25] MEDS: Metoprolol Tartrate 5 MG (5 mL) VIAL IVP PRN (11:02)
[2023-06-25] MEDS: Pantoprazole 40 MG VIAL IVP SCH ×2 (11:06→20:33)
[2023-06-25] MEDS: Nystatin 500,000 UNITS/5 ML UDCUP SSW SCH ×4 (11:07→20:01)
[2023-06-25] MEDS: Furosemide 40 MG (4 mL) VIAL IVP SCH (11:07)
[2023-06-25] MEDS: Metoprolol Tartrate 25 MG TAB PO SCH ×3 (11:09→20:01)
[2023-06-25] MEDS: Insulin Glargine 30 UNITS/0.3 ML VIAL SC SCH ×2 (11:09→23:47)
[2023-06-25] MEDS: Enoxaparin 40 MG (0.4 mL) SYRINGE SC SCH (11:38)
[2023-06-25] MEDS ORDERED: Ketorolac Tromethamine 30 MG (1 mL) VIAL ONE (12:43)
[2023-06-25] MEDS ORDERED: Aquaphor 10 GM TUBE TOP PRN (12:52)
[2023-06-25] MEDS ORDERED: Ketorolac Tromethamine 30 MG (1 mL) VIAL IVP SCH (13:30)
[2023-06-25 14:15] LABS: Potassium 3.4 mmol/L (3.5-5.1)
[2023-06-25] MEDS ORDERED: Albumin 25% 25 GM (100 mL) BOT IVPB SCH (15:00)
[2023-06-25] MEDS: Dextrose 5%-Lactated Ringers 1,000 ML IV SCH (15:41)
[2023-06-26] MEDS: Dextrose 5%-Lactated Ringers 1,000 ML IV SCH ×2 (01:00→12:25)
[2023-06-26] MEDS: Meropenem 1 GM in Sodium Chloride 0.9% 100 ML IVPB SCH ×2 (01:53→09:07)
[2023-06-26 05:56] LABS: Hematocrit 22.9 % (36.0-47.0); Hemoglobin 7.4 g/dL (12.0-16.0); Manual Diff?? YES; Mean Corpuscular HGB CONC 32.3 g/dL (32.0-36.0); Mean Corpuscular Hemoglobin 29.2 pg (27.0-31.0); Mean Corpuscular Volume 90.5 fl (78.0-98.0); Mean Platelet Volume 9.3 fL (7.4-10.4); Platelet Count 211 10x3/uL (130-400); RBC Distribution Width 17.8 % (11.5-14.5); Red Blood Cell (RBC) Count 2.53 mill/uL (4.20-5.40); White Blood Cell (WBC) Count 4.9 10x3/uL (4.8-10.8)
[2023-06-26 06:01] LABS: Delete Auto Diff?? YES
[2023-06-26 06:02] LABS: ALT (SGPT) 20 U/L (8-55); AST (SGOT) 24 U/L (5-34); Albumin 2.1 g/dL (3.5-5.0); Alkaline Phosphatase 86 U/L (40-110); Anion Gap 16 mmol/L (10-20); BUN (Urea Nitrogen) 13 mg/dL (9.8-20.1); Bilirubin, Total 1.1 mg/dL (0.2-1.2); Calc. Creatinine Clearance 258 mL/min (70-130); Calcium 7.8 mg/dL (7.8-10.44); Carbon Dioxide 24 mmol/L (22-29); Chloride 104 mmol/L (98-107); Estimated GFR 111; Globulin 2.9 g/dL (2.4-3.5); Glucose 131 mg/dL (70-105); Phosphorus 2.9 mg/dL (2.3-4.7); Sodium 141 mmol/L (136-145)
[2023-06-26 06:04] LABS: Magnesium 1.6 mg/dL (1.6-2.6)
[2023-06-26 06:21] LABS: Band 16 % (5-11); Eosinophils 1 % (0-10); Hypochromia SLIGHT = 6-15 cells (100X) (0-5/hpf); Lymphocytes 14 % (21-51); Monocytes 2 % (0-10); Neutrophil 63 % (42-75); Nucleated RBC (Manual Ct) 4 % (0); Platelet Adequacy Comment Appears Adequate; Reactive Lymphocytes 4 % (0-10)
[2023-06-26] MEDS: Albuterol 2.5 MG (3 mL) NEB EZPAP SCH ×4 (07:43→23:49)
[2023-06-26] MEDS: Metoprolol Tartrate 25 MG TAB PO SCH ×3 (09:07→21:08)
[2023-06-26] MEDS: Nystatin 500,000 UNITS/5 ML UDCUP SSW SCH ×4 (09:07→21:08)
[2023-06-26] MEDS: Insulin Glargine 30 UNITS/0.3 ML VIAL SC SCH ×2 (09:07→21:09)
[2023-06-26] MEDS: Pantoprazole 40 MG VIAL IVP SCH ×2 (09:07→21:13)
[2023-06-26] MEDS ORDERED: Iopamidol-370 76% 500 ML MDV (1 ML CHARGE) ONE (09:17)
[2023-06-26] MEDS: Enoxaparin 40 MG (0.4 mL) SYRINGE SC SCH (12:25)
[2023-06-26] MEDS ORDERED: Magnesium 2 GM/50 ML(in water) 2 GM in Premix 1 BAG IVPB SCH (13:00)
[2023-06-26] MEDS ORDERED: Iron, Sodium Ferric Gluconate 250 MG in Sodium Chloride 0.9% 250 ML 250 ML IVPB SCH (13:45)
[2023-06-26] MEDS: Metoprolol Tartrate 5 MG (5 mL) VIAL IVP PRN (14:10)
[2023-06-26] MEDS ORDERED: Haloperidol Lactate 5 MG/ML VIAL SLOW IVP PRN (14:43)
[2023-06-26] MEDS ORDERED: Sodium Chloride 0.45% 1,000 ML IV SCH (14:45)
[2023-06-26] MEDS: Potassium Chloride 20 MEQ in Premix 1 BAG IVPB SCH ×3 (15:00→18:35)
[2023-06-26] MEDS ORDERED: Lidocaine 1% w/Epinephrine 1:100K 20 ML VIAL ONE (15:14)
[2023-06-26] MEDS ORDERED: Lidocaine 2% PF 100 mg/5 ml Syringe ONE (15:14)
[2023-06-26 15:23] LABS: Lactic Acid 1.4 mmol/L (0.5-2.2)
[2023-06-26 15:28] LABS: Anion Gap 18 mmol/L (10-20); BUN (Urea Nitrogen) 12 mg/dL (9.8-20.1); Calc. Creatinine Clearance 254 mL/min (70-130); Calcium 7.8 mg/dL (7.8-10.44); Carbon Dioxide 22 mmol/L (22-29); Chloride 105 mmol/L (98-107); Estimated GFR 111; Glucose 130 mg/dL (70-105); Potassium 3.1 mmol/L (3.5-5.1); Sodium 142 mmol/L (136-145)
[2023-06-26] MEDS ORDERED: Potassium Chloride 20 MEQ TAB PO SCH (17:00)
[2023-06-26] MEDS: Potassium Chloride 20 MEQ in Lactated Ringer's 1,000 ML IV SCH (17:00)
[2023-06-26] MEDS ORDERED: Piperacillin/Tazobactam 3.375 GM in Sodium Chloride 0.9% 100 ML IVPB SCH (17:15)
[2023-06-26] MEDS: Morphine 2 MG/ML VIAL SLOW IVP PRN (19:46)
[2023-06-26] MEDS: Piperacillin/Tazobactam 3.375 GM in Sodium Chloride 0.9% 100 ML IVPB SCH (21:14)
[2023-06-27] MEDS: Potassium Chloride 20 MEQ in Lactated Ringer's 1,000 ML IV SCH ×3 (01:50→16:20)
[2023-06-27 04:44] LABS: Hematocrit 26.1 % (36.0-47.0); Hemoglobin 8.2 g/dL (12.0-16.0); Manual Diff?? YES; Mean Corpuscular HGB CONC 31.4 g/dL (32.0-36.0); Mean Corpuscular Hemoglobin 28.2 pg (27.0-31.0); Mean Corpuscular Volume 89.7 fl (78.0-98.0); Mean Platelet Volume 9.5 fL (7.4-10.4); Platelet Count 226 10x3/uL (130-400); Red Blood Cell (RBC) Count 2.91 mill/uL (4.20-5.40); White Blood Cell (WBC) Count 7.3 10x3/uL (4.8-10.8)
[2023-06-27 04:49] LABS: Delete Auto Diff?? YES
[2023-06-27 05:04] LABS: Phosphorus 3.3 mg/dL (2.3-4.7)
[2023-06-27 05:07] LABS: ALT (SGPT) 17 U/L (8-55); AST (SGOT) 22 U/L (5-34); Alkaline Phosphatase 92 U/L (40-110); Anion Gap 14 mmol/L (10-20); BUN (Urea Nitrogen) 12 mg/dL (9.8-20.1); Bilirubin, Total 1.2 mg/dL (0.2-1.2); Calc. Creatinine Clearance 259 mL/min (70-130); Calcium 7.7 mg/dL (7.8-10.44); Carbon Dioxide 24 mmol/L (22-29); Chloride 108 mmol/L (98-107); Estimated GFR 112; Globulin 2.9 g/dL (2.4-3.5); Glucose 134 mg/dL (70-105); Magnesium 1.7 mg/dL (1.6-2.6); Potassium 3.5 mmol/L (3.5-5.1); Protein, Total 4.9 g/dL (6.0-8.3); Sodium 142 mmol/L (136-145)
[2023-06-27 05:34] LABS: Anisocytosis MODERATE=16-30 cells (100X) (0-5/hpf); Band 3 % (5-11); Lymphocytes 12 % (21-51); Metamyelocyte 1 % (0-0); Monocytes 5 % (0-10); Neutrophil 79 % (42-75); Nucleated RBC (Manual Ct) 3 % (0); Platelet Adequacy Comment Platelets Normal
[2023-06-27 05:35] LABS: Polychromasia MODERATE = 3-4 cells (100X) (0-2/hpf); Stomatocytes SLIGHT = 2-5 cells (100X) (0-1/hpf)
[2023-06-27] MEDS: Piperacillin/Tazobactam 3.375 GM in Sodium Chloride 0.9% 100 ML IVPB SCH ×3 (05:35→21:36)
[2023-06-27] MEDS ORDERED: Potassium Chloride 20 MEQ TAB PO SCH (08:00)
[2023-06-27] MEDS ORDERED: Magnesium 2 GM/50 ML(in water) 2 GM in Premix 1 BAG IVPB SCH (08:00)
[2023-06-27] MEDS: Albuterol 2.5 MG (3 mL) NEB EZPAP SCH ×4 (08:21→23:16)
[2023-06-27] MEDS: Potassium Chloride 20 MEQ in Premix 1 BAG IVPB SCH ×2 (09:01→15:03)
[2023-06-27] MEDS: Pantoprazole 40 MG VIAL IVP SCH ×2 (09:02→21:35)
[2023-06-27] MEDS: Metoprolol Tartrate 25 MG TAB PO SCH ×4 (09:26→21:51)
[2023-06-27] MEDS: Nystatin 500,000 UNITS/5 ML UDCUP SSW SCH ×4 (09:27→21:35)
[2023-06-27] MEDS ORDERED: PROPOFOL 0 ML ONE (10:07)
[2023-06-27] MEDS ORDERED: Ondansetron PF 4 MG/2 ML Vial ONE (10:08)
[2023-06-27] MEDS ORDERED: Dexamethasone 4 mg/ml Vial ONE (10:08)
[2023-06-27] MEDS ORDERED: Lidocaine 1% PF 5 ML VIAL ONE (10:08)
[2023-06-27] MEDS ORDERED: Rocuronium Bromide 10 MG/ML (10ML VIAL) ONE (10:08)
[2023-06-27] MEDS ORDERED: SUCCINYLCHOLINE/SOD CL,ISO/PF 200 MG/10 ML SYRINGE FS ONE (11:17)
[2023-06-27] MEDS ORDERED: Etomidate 40 MG (20 mL) VIAL ONE (11:20)
[2023-06-27] MEDS ORDERED: fentaNYL PF 100 MCG/2 ML SYRINGE ONE (11:21)
[2023-06-27] MEDS ORDERED: Calcium Chloride 1 GM/10 ML Abboject SYRINGE ONE (11:35)
[2023-06-27] MEDS ORDERED: PHENYLEPHRINE-NS 100 MCG/ML 10 ML SYRINGE ONE ×2 (11:38→12:16)
[2023-06-27] MEDS ORDERED: Fentanyl CADD 100 ML ONE (13:41)
[2023-06-27] MEDS ORDERED: Propofol 1,000 MG/100 ML VIAL IV ONE (13:43)
[2023-06-27] MEDS ORDERED: Midazolam HCl 2 mg/2 ml Vial SLOW IVP SCH (13:45)
[2023-06-27] MEDS ORDERED: Midazolam HCl 2 mg/2 ml Vial ONE (13:47)
[2023-06-27] MEDS ORDERED: Morphine 2 MG/ML VIAL SLOW IVP PRN (14:00)
[2023-06-27] MEDS ORDERED: Fentanyl BOLUS 250 ML IVPB PRN (14:00)
[2023-06-27] MEDS ORDERED: Lorazepam 2 MG/ML VIAL SLOW IVP PRN (14:00)
[2023-06-27] MEDS ORDERED: Fentanyl CADD 100 ML IV SCH (14:00)
[2023-06-27] MEDS ORDERED: Ventilator Sedation Protocol 1 EACH FS SCH (14:00)
[2023-06-27] MEDS ORDERED: Propofol BOLUS 1,000 MG/100 ML VIAL IV PRN (14:00)
[2023-06-27] MEDS ORDERED: DISCONTINUE PREVIOUS NARCOTIC PAIN MEDICATIONS AND BENZODIAZEPINES FS SCH (14:00)
[2023-06-27 14:04] LABS: Actual Bicarbonate (HCO3a) 22.1 mEq/L (22-28); Base Excess (BEa) -3.7 mEq/L (-2.0 to +3.0); CO2 Tension 43.1 mmHg (35.0-45.0); Carboxyhemoglobin (COHb) 1.3 gm% (0.0-3.0); Hematocrit-ABG 38 % (36.0-47.0); Hemoglobin (Hb) 12.8 g/dL (12.0-16.0); Potassium - ABG Lab 4.01 mmol/L (3.70-5.30); pH, Arterial 7.328 (7.35-7.45)
[2023-06-27 14:11] LABS: ALV-art Gradient 295.925 mmHg (0-20); Puncture Site RBA
[2023-06-27] MEDS: Multivitamins, Adult 10 ML, TRACE ELEMENT CONCENTRATE 1 ML in D15W-AA 5% with Lytes 2,0... IV SCH (14:15)
[2023-06-27] MEDS: Propofol 1,000 MG/100 ML VIAL IV PRN ×2 (14:17→17:29)
[2023-06-27] MEDS ORDERED: Albumin 25% 25 GM (100 mL) BOT IVPB SCH (15:30)
[2023-06-27 16:08] LABS: Lactic Acid 1.6 mmol/L (0.5-2.2)
[2023-06-27 16:14] LABS: Magnesium 1.9 mg/dL (1.6-2.6); Phosphorus 3.9 mg/dL (2.3-4.7)
[2023-06-27] MEDS: HumaLOG 300 UNITS/3 ML VIAL SC PRN ×2 (16:30→22:02)
[2023-06-27] MEDS: metroNIDAZOLE 500 MG in Premix 1 BAG IVPB SCH (18:50)
[2023-06-27] MEDS ORDERED: NOREPINEPHRINE 8 MG/250 ML-D5W 250 ML IVPB SCH (20:00)
[2023-06-27] MEDS: Albumin 25% 25 GM (100 mL) BOT IVPB SCH (21:34)
[2023-06-27 22:21] LABS: Hematocrit 26.8 % (36.0-47.0); Hemoglobin 8.6 g/dL (12.0-16.0); Manual Diff?? YES; Mean Corpuscular HGB CONC 32.1 g/dL (32.0-36.0); Mean Corpuscular Hemoglobin 28.8 pg (27.0-31.0); Mean Corpuscular Volume 89.6 fl (78.0-98.0); Mean Platelet Volume 9.6 fL (7.4-10.4); Platelet Count 172 10x3/uL (130-400); RBC Distribution Width 18.1 % (11.5-14.5); Red Blood Cell (RBC) Count 2.99 mill/uL (4.20-5.40); White Blood Cell (WBC) Count 6.1 10x3/uL (4.8-10.8)
[2023-06-27 22:23] LABS: Delete Auto Diff?? YES
[2023-06-27 22:38] LABS: Band 10 % (5-11); Lymphocytes 14 % (21-51); Monocytes 1 % (0-10); Myelocyte 3 % (0-0); Neutrophil 72 % (42-75); Nucleated RBC (Manual Ct) 3 % (0)
[2023-06-27 22:39] LABS: Platelet Adequacy Comment Platelets Normal; Polychromasia SLIGHT = 2-3 cells (100X) (0-2/hpf)
[2023-06-28] MEDS: Propofol 1,000 MG/100 ML VIAL IV PRN ×2 (01:31→05:34)
[2023-06-28] MEDS: metroNIDAZOLE 500 MG in Premix 1 BAG IVPB SCH ×3 (01:31→18:02)
[2023-06-28] MEDS: Potassium Chloride 20 MEQ in Lactated Ringer's 1,000 ML IV SCH ×2 (02:47→03:02)
[2023-06-28] MEDS: Albumin 25% 25 GM (100 mL) BOT IVPB SCH ×4 (02:51→23:17)
[2023-06-28] MEDS: HumaLOG 300 UNITS/3 ML VIAL SC PRN ×4 (04:31→21:04)
[2023-06-28 04:50] LABS: Hemoglobin 7.9 g/dL (12.0-16.0); Manual Diff?? YES; Mean Corpuscular HGB CONC 31.6 g/dL (32.0-36.0); Mean Corpuscular Hemoglobin 28.6 pg (27.0-31.0); Mean Corpuscular Volume 90.6 fl (78.0-98.0); Mean Platelet Volume 9.5 fL (7.4-10.4); Platelet Count 149 10x3/uL (130-400); RBC Distribution Width 17.9 % (11.5-14.5); Red Blood Cell (RBC) Count 2.76 mill/uL (4.20-5.40); White Blood Cell (WBC) Count 6.3 10x3/uL (4.8-10.8)
[2023-06-28 04:57] LABS: Delete Auto Diff?? YES
[2023-06-28 05:11] LABS: ALT (SGPT) 10 U/L (8-55); AST (SGOT) 10 U/L (5-34); Albumin 2.4 g/dL (3.5-5.0); Alkaline Phosphatase 52 U/L (40-110); Anion Gap 10 mmol/L (10-20); BUN (Urea Nitrogen) 18 mg/dL (9.8-20.1); Bilirubin, Total 1.4 mg/dL (0.2-1.2); Calc. Creatinine Clearance 228 mL/min (70-130); Calcium 7.6 mg/dL (7.8-10.44); Carbon Dioxide 24 mmol/L (22-29); Chloride 112 mmol/L (98-107); Estimated GFR 108; Globulin 1.8 g/dL (2.4-3.5); Glucose 361 mg/dL (70-105); Potassium 4.1 mmol/L (3.5-5.1); Protein, Total 4.2 g/dL (6.0-8.3); Sodium 142 mmol/L (136-145)
[2023-06-28] MEDS: Piperacillin/Tazobactam 3.375 GM in Sodium Chloride 0.9% 100 ML IVPB SCH ×3 (05:34→21:03)
[2023-06-28 06:44] LABS: Band 13 % (5-11); Lymphocytes 15 % (21-51); Metamyelocyte 1 % (0-0); Monocytes 3 % (0-10); Myelocyte 1 % (0-0); Neutrophil 67 % (42-75); Nucleated RBC (Manual Ct) 2 % (0); Platelet Adequacy Comment Appears Adequate; Polychromasia SLIGHT = 2-3 cells (100X) (0-2/hpf)
[2023-06-28] MEDS: Albuterol 2.5 MG (3 mL) NEB EZPAP SCH ×4 (07:57→22:59)
[2023-06-28] MEDS: Pantoprazole 40 MG VIAL IVP SCH ×2 (09:19→21:03)
[2023-06-28] MEDS: Nystatin 500,000 UNITS/5 ML UDCUP SSW SCH ×7 (09:19→21:12)
[2023-06-28] MEDS: Insulin Glargine 30 UNITS/0.3 ML VIAL SC SCH (09:19)
[2023-06-28] MEDS ORDERED: DC Sedation Protocol FS ONE (09:37)
[2023-06-28] MEDS ORDERED: fentaNYL 50 mcg/mL 1 mL Vial SLOW IVP PRN ×2 (09:45→15:38)
[2023-06-28] MEDS: Multivitamins, Adult 10 ML, TRACE ELEMENT CONCENTRATE 1 ML in D15W-AA 5% with Lytes 2,0... IV SCH (14:03)
[2023-06-28] MEDS ORDERED: diphenhydrAMINE 25 MG CAP PO PRN (16:12)
[2023-06-28] MEDS ORDERED: Promethazine HCl 25 MG/ML VIAL IM PRN (16:12)
[2023-06-28] MEDS ORDERED: Ondansetron PF 4 MG/2 ML Vial IVP PRN (16:12)
[2023-06-28] MEDS ORDERED: Naloxone HCl 0.4 mg/ml Vial IV PRN (16:12)
[2023-06-28] MEDS ORDERED: diphenhydrAMINE 50 MG/ML VIAL IVP PRN (16:12)
[2023-06-28] MEDS ORDERED: diphenhydrAMINE 50 MG/ML VIAL IM PRN (16:12)
[2023-06-28] MEDS ORDERED: FENTANYL 500 MCG/10 ML VIAL 2,000 MCG in Sodium Chloride 0.9% 60 ML IV PRN (16:12)
[2023-06-28] MEDS ORDERED: ACTIVE PCA FS PRN (16:15)
[2023-06-28] MEDS: Fentanyl CADD 100 ML IVPB SCH (16:29)
[2023-06-29] MEDS: metroNIDAZOLE 500 MG in Premix 1 BAG IVPB SCH ×3 (02:10→18:10)
[2023-06-29] MEDS: HumaLOG 300 UNITS/3 ML VIAL SC PRN ×4 (04:05→21:12)
[2023-06-29 04:26] LABS: Hemoglobin 7.6 g/dL (12.0-16.0); Manual Diff?? YES; Mean Corpuscular HGB CONC 31.7 g/dL (32.0-36.0); Mean Corpuscular Hemoglobin 29.1 pg (27.0-31.0); Mean Platelet Volume 9.7 fL (7.4-10.4); Platelet Count 123 10x3/uL (130-400); RBC Distribution Width 17.3 % (11.5-14.5); Red Blood Cell (RBC) Count 2.61 mill/uL (4.20-5.40); White Blood Cell (WBC) Count 8.1 10x3/uL (4.8-10.8)
[2023-06-29 04:29] LABS: Delete Auto Diff?? YES
[2023-06-29 04:49] LABS: ALT (SGPT) 11 U/L (8-55); AST (SGOT) 9 U/L (5-34); Albumin 2.4 g/dL (3.5-5.0); Alkaline Phosphatase 63 U/L (40-110); Anion Gap 11 mmol/L (10-20); BUN (Urea Nitrogen) 16 mg/dL (9.8-20.1); Bilirubin, Total 0.9 mg/dL (0.2-1.2); Calc. Creatinine Clearance 249 mL/min (70-130); Calcium 8.2 mg/dL (7.8-10.44); Carbon Dioxide 24 mmol/L (22-29); Chloride 111 mmol/L (98-107); Estimated GFR 110; Glucose 286 mg/dL (70-105); Potassium 3.5 mmol/L (3.5-5.1); Protein, Total 4.4 g/dL (6.0-8.3); Sodium 142 mmol/L (136-145)
[2023-06-29] MEDS: Albumin 25% 25 GM (100 mL) BOT IVPB SCH ×4 (05:13→23:33)
[2023-06-29] MEDS: Piperacillin/Tazobactam 3.375 GM in Sodium Chloride 0.9% 100 ML IVPB SCH ×3 (05:13→21:11)
[2023-06-29 05:35] LABS: Band 29 % (5-11); Lymphocytes 18 % (21-51); Monocytes 5 % (0-10); Myelocyte 4 % (0-0); Neutrophil 44 % (42-75)
[2023-06-29] MEDS: Albuterol 2.5 MG (3 mL) NEB EZPAP SCH ×4 (07:45→23:53)
[2023-06-29] MEDS: Insulin Glargine 30 UNITS/0.3 ML VIAL SC SCH (08:55)
[2023-06-29] MEDS: Nystatin 500,000 UNITS/5 ML UDCUP SSW SCH ×5 (08:56→21:26)
[2023-06-29] MEDS: Pantoprazole 40 MG VIAL IVP SCH ×2 (08:56→21:10)
[2023-06-29] MEDS: Multivitamins, Adult 10 ML, TRACE ELEMENT CONCENTRATE 1 ML in D15W-AA 5% with Lytes 2,0... IV SCH (15:06)
[2023-06-29] MEDS: Fentanyl CADD 100 ML IVPB SCH (22:39)
[2023-06-30] MEDS: metroNIDAZOLE 500 MG in Premix 1 BAG IVPB SCH ×3 (02:34→17:49)
[2023-06-30] MEDS: HumaLOG 300 UNITS/3 ML VIAL SC PRN ×3 (04:35→21:28)
[2023-06-30 04:46] LABS: Hematocrit 24.4 % (36.0-47.0); Hemoglobin 7.6 g/dL (12.0-16.0); Manual Diff?? YES; Mean Corpuscular HGB CONC 31.1 g/dL (32.0-36.0); Mean Corpuscular Hemoglobin 28.8 pg (27.0-31.0); Mean Corpuscular Volume 92.4 fl (78.0-98.0); Mean Platelet Volume 9.3 fL (7.4-10.4); Platelet Count 124 10x3/uL (130-400); RBC Distribution Width 16.7 % (11.5-14.5); Red Blood Cell (RBC) Count 2.64 mill/uL (4.20-5.40); White Blood Cell (WBC) Count 8.9 10x3/uL (4.8-10.8)
[2023-06-30 04:51] LABS: Delete Auto Diff?? YES
[2023-06-30 05:41] LABS: ALT (SGPT) 11 U/L (8-55); AST (SGOT) 9 U/L (5-34); Albumin 2.8 g/dL (3.5-5.0); Alkaline Phosphatase 68 U/L (40-110); Anion Gap 11 mmol/L (10-20); BUN (Urea Nitrogen) 13 mg/dL (9.8-20.1); Bilirubin, Total 1.4 mg/dL (0.2-1.2); Calc. Creatinine Clearance 260 mL/min (70-130); Calcium 8.2 mg/dL (7.8-10.44); Carbon Dioxide 23 mmol/L (22-29); Chloride 112 mmol/L (98-107); Estimated GFR 111; Globulin 1.9 g/dL (2.4-3.5); Glucose 269 mg/dL (70-105); Potassium 3.3 mmol/L (3.5-5.1); Protein, Total 4.7 g/dL (6.0-8.3); Sodium 143 mmol/L (136-145)
[2023-06-30] MEDS: Piperacillin/Tazobactam 3.375 GM in Sodium Chloride 0.9% 100 ML IVPB SCH ×3 (06:05→21:08)
[2023-06-30 06:30] LABS: Band 7 % (5-11); Lymphocytes 16 % (21-51); Metamyelocyte 2 % (0-0); Monocytes 3 % (0-10); Myelocyte 3 % (0-0); Neutrophil 69 % (42-75); Nucleated RBC (Manual Ct) 1 % (0)
[2023-06-30 06:31] LABS: Polychromasia SLIGHT = 2-3 cells (100X) (0-2/hpf)
[2023-06-30] MEDS: Albuterol 2.5 MG (3 mL) NEB EZPAP SCH ×4 (07:35→22:13)
[2023-06-30] MEDS ORDERED: Potassium Chloride 40 MEQ in Premix 1 BAG IVPB SCH (08:30)
[2023-06-30] MEDS ORDERED: Furosemide 20 MG (2 mL) VIAL SLOW IVP SCH (08:30)
[2023-06-30] MEDS: Pantoprazole 40 MG VIAL IVP SCH ×2 (09:03→21:09)
[2023-06-30] MEDS: Insulin Glargine 30 UNITS/0.3 ML VIAL SC SCH (09:03)
[2023-06-30] MEDS: Nystatin 500,000 UNITS/5 ML UDCUP SSW SCH ×4 (09:04→21:31)
[2023-06-30] MEDS: Multivitamins, Adult 10 ML, TRACE ELEMENT CONCENTRATE 1 ML in D15W-AA 5% with Lytes 2,0... IV SCH (13:52)
[2023-07-01] MEDS: metroNIDAZOLE 500 MG in Premix 1 BAG IVPB SCH ×3 (04:07→17:32)
[2023-07-01] MEDS: HumaLOG 300 UNITS/3 ML VIAL SC PRN ×4 (04:08→21:56)
[2023-07-01 04:30] LABS: Hematocrit 26.9 % (36.0-47.0); Hemoglobin 8.5 g/dL (12.0-16.0); Manual Diff?? YES; Mean Corpuscular HGB CONC 31.6 g/dL (32.0-36.0); Mean Corpuscular Hemoglobin 28.6 pg (27.0-31.0); Mean Corpuscular Volume 90.6 fl (78.0-98.0); Mean Platelet Volume 10.1 fL (7.4-10.4); Platelet Count 116 10x3/uL (130-400); RBC Distribution Width 17.2 % (11.5-14.5); Red Blood Cell (RBC) Count 2.97 mill/uL (4.20-5.40)
[2023-07-01 05:12] LABS: ALT (SGPT) 10 U/L (8-55); AST (SGOT) 16 U/L (5-34); Albumin 2.5 g/dL (3.5-5.0); Alkaline Phosphatase 83 U/L (40-110); Anion Gap 13 mmol/L (10-20); BUN (Urea Nitrogen) 15 mg/dL (9.8-20.1); Bilirubin, Total 1.6 mg/dL (0.2-1.2); Calc. Creatinine Clearance 256 mL/min (70-130); Calcium 8.3 mg/dL (7.8-10.44); Carbon Dioxide 25 mmol/L (22-29); Chloride 107 mmol/L (98-107); Estimated GFR 110; Globulin 2.2 g/dL (2.4-3.5); Glucose 287 mg/dL (70-105); Potassium 3.4 mmol/L (3.5-5.1); Protein, Total 4.7 g/dL (6.0-8.3); Sodium 142 mmol/L (136-145)
[2023-07-01 05:18] LABS: Delete Auto Diff?? YES
[2023-07-01] MEDS: Piperacillin/Tazobactam 3.375 GM in Sodium Chloride 0.9% 100 ML IVPB SCH ×3 (05:18→21:58)
[2023-07-01 05:55] LABS: Band 16 % (5-11); Lymphocytes 37 % (21-51); Monocytes 5 % (0-10); Myelocyte 2 % (0-0); Neutrophil 40 % (42-75); Nucleated RBC (Manual Ct) 4 % (0)
[2023-07-01] MEDS: Albuterol 2.5 MG (3 mL) NEB EZPAP SCH ×3 (07:38→19:04)
[2023-07-01] MEDS: Pantoprazole 40 MG VIAL IVP SCH ×2 (09:21→20:39)
[2023-07-01] MEDS: Insulin Glargine 30 UNITS/0.3 ML VIAL SC SCH (09:21)
[2023-07-01] MEDS: Nystatin 500,000 UNITS/5 ML UDCUP SSW SCH ×4 (09:21→20:40)
[2023-07-01] MEDS ORDERED: Potassium Chloride 40 MEQ in Premix 1 BAG IVPB SCH (10:00)
[2023-07-01] MEDS ORDERED: Furosemide 20 MG (2 mL) VIAL SLOW IVP SCH (10:00)
[2023-07-01] MEDS: Fentanyl CADD 100 ML IVPB SCH (10:39)
[2023-07-01] MEDS: Multivitamins, Adult 10 ML, TRACE ELEMENT CONCENTRATE 1 ML in D15W-AA 5% with Lytes 2,0... IV SCH (14:48)
[2023-07-01] MEDS: Micafungin 100 MG in Sodium Chloride 0.9% 100 ML IVPB SCH (20:37)
[2023-07-02] MEDS: Albuterol 2.5 MG (3 mL) NEB EZPAP SCH ×5 (00:18→23:59)
[2023-07-02] MEDS: metroNIDAZOLE 500 MG in Premix 1 BAG IVPB SCH ×3 (02:52→18:47)
[2023-07-02 05:10] LABS: Hematocrit 25.6 % (36.0-47.0); Hemoglobin 8.2 g/dL (12.0-16.0); Manual Diff?? YES; Mean Corpuscular Hemoglobin 29.2 pg (27.0-31.0); Mean Corpuscular Volume 91.1 fl (78.0-98.0); Mean Platelet Volume 9.9 fL (7.4-10.4); Platelet Count 103 10x3/uL (130-400); RBC Distribution Width 17.2 % (11.5-14.5); Red Blood Cell (RBC) Count 2.81 mill/uL (4.20-5.40); White Blood Cell (WBC) Count 10.6 10x3/uL (4.8-10.8)
[2023-07-02 05:35] LABS: Delete Auto Diff?? YES
[2023-07-02] MEDS: Piperacillin/Tazobactam 3.375 GM in Sodium Chloride 0.9% 100 ML IVPB SCH ×3 (05:53→22:36)
[2023-07-02 06:08] LABS: Anion Gap 14 mmol/L (10-20); BUN (Urea Nitrogen) 16 mg/dL (9.8-20.1); Calc. Creatinine Clearance 244 mL/min (70-130); Calcium 8.3 mg/dL (7.8-10.44); Carbon Dioxide 23 mmol/L (22-29); Chloride 104 mmol/L (98-107); Estimated GFR 110; Glucose 281 mg/dL (70-105); Potassium 3.1 mmol/L (3.5-5.1); Sodium 138 mmol/L (136-145)
[2023-07-02] MEDS: HumaLOG 300 UNITS/3 ML VIAL SC PRN ×4 (06:29→22:48)
[2023-07-02] MEDS ORDERED: Enoxaparin 30 MG (0.3 mL) SYRINGE SC SCH (06:30)
[2023-07-02] MEDS ORDERED: Enoxaparin 100 MG (1 mL) SYRINGE SC SCH (06:30)
[2023-07-02 06:37] LABS: Band 11 % (5-11); Lymphocytes 19 % (21-51); Metamyelocyte 1 % (0-0); Monocytes 5 % (0-10); Myelocyte 2 % (0-0); Neutrophil 62 % (42-75); Nucleated RBC (Manual Ct) 1 % (0); Platelet Adequacy Comment Appears Decreased; Polychromasia SLIGHT = 2-3 cells (100X) (0-2/hpf)
[2023-07-02] MEDS: Pantoprazole 40 MG VIAL IVP SCH (10:13)
[2023-07-02] MEDS: Insulin Glargine 30 UNITS/0.3 ML VIAL SC SCH (10:14)
[2023-07-02] MEDS: Nystatin 500,000 UNITS/5 ML UDCUP SSW SCH ×4 (10:24→22:38)
[2023-07-02] MEDS ORDERED: Magnesium 2 GM/50 ML(in water) 2 GM in Premix 1 BAG IVPB SCH (11:45)
[2023-07-02] MEDS: Lidocaine 4% Patch TD SCH (12:14)
[2023-07-02 12:24] LABS: Magnesium 1.2 mg/dL (1.6-2.6)
[2023-07-02] MEDS: Potassium Chloride 20 MEQ in Premix 1 BAG IVPB SCH ×2 (12:27→13:36)
[2023-07-02] MEDS ORDERED: HYDROcodone/Acetaminophen 10/325 mg Tablet PO PRN ×4 (13:15→18:44)
[2023-07-02] MEDS ORDERED: fentaNYL 50 mcg/mL 1 mL Vial SLOW IVP PRN ×2 (13:17→18:45)
[2023-07-02] MEDS: Multivitamins, Adult 10 ML, TRACE ELEMENT CONCENTRATE 1 ML in D15W-AA 5% with Lytes 2,0... IV SCH (13:53)
[2023-07-02] MEDS ORDERED: Acetaminophen 500 MG TAB PO SCH ×2 (18:15→21:00)
[2023-07-02] MEDS ORDERED: Ketorolac Tromethamine 30 MG (1 mL) VIAL IVP SCH (18:15)
[2023-07-02 18:30] LABS: Potassium 3.1 mmol/L (3.5-5.1)
[2023-07-02] MEDS ORDERED: Potassium Chloride 20 MEQ TAB PO SCH (20:15)
[2023-07-02] MEDS: Micafungin 100 MG in Sodium Chloride 0.9% 100 ML IVPB SCH (22:35)
[2023-07-02] MEDS: DULoxetine 20 MG CAP PO SCH (22:36)
[2023-07-02] MEDS: Enoxaparin 30 MG (0.3 mL) SYRINGE SC SCH (22:37)
[2023-07-02] MEDS: Enoxaparin 100 MG (1 mL) SYRINGE SC SCH (22:37)
[2023-07-02] MEDS: Transdermal Patch Removal TOP SCH (23:59)
[2023-07-03] MEDS: Ketorolac Tromethamine 30 MG (1 mL) VIAL IVP SCH ×4 (02:19→20:20)
[2023-07-03] MEDS: Ondansetron ODT 4 MG TAB PO PRN ×2 (02:52→08:49)
[2023-07-03 05:49] LABS: Hematocrit 24.2 % (36.0-47.0); Hemoglobin 7.7 g/dL (12.0-16.0); Manual Diff?? YES; Mean Corpuscular HGB CONC 31.8 g/dL (32.0-36.0); Mean Corpuscular Hemoglobin 29.2 pg (27.0-31.0); Mean Corpuscular Volume 91.7 fl (78.0-98.0); Mean Platelet Volume 10.4 fL (7.4-10.4); RBC Distribution Width 17.5 % (11.5-14.5); Red Blood Cell (RBC) Count 2.64 mill/uL (4.20-5.40); White Blood Cell (WBC) Count 7.9 10x3/uL (4.8-10.8)
[2023-07-03 06:12] LABS: Anion Gap 11 mmol/L (10-20); BUN (Urea Nitrogen) 24 mg/dL (9.8-20.1); Calc. Creatinine Clearance 250 mL/min (70-130); Calcium 7.7 mg/dL (7.8-10.44); Carbon Dioxide 25 mmol/L (22-29); Chloride 103 mmol/L (98-107); Estimated GFR 109; Glucose 269 mg/dL (70-105); Potassium 3.5 mmol/L (3.5-5.1); Sodium 135 mmol/L (136-145)
[2023-07-03] MEDS: HumaLOG 300 UNITS/3 ML VIAL SC PRN ×2 (06:26→10:07)
[2023-07-03] MEDS: Piperacillin/Tazobactam 3.375 GM in Sodium Chloride 0.9% 100 ML IVPB SCH ×3 (06:30→23:56)
[2023-07-03 06:38] LABS: Delete Auto Diff?? YES; Platelet Count 84 10x3/uL (130-400)
[2023-07-03] MEDS: Albuterol 2.5 MG (3 mL) NEB EZPAP SCH ×4 (07:01→23:56)
[2023-07-03] MEDS: Acetaminophen 500 MG TAB PO SCH ×3 (07:51→20:19)
[2023-07-03] MEDS: Insulin Glargine 30 UNITS/0.3 ML VIAL SC SCH (07:51)
[2023-07-03] MEDS: Enoxaparin 100 MG (1 mL) SYRINGE SC SCH ×2 (07:51→20:19)
[2023-07-03] MEDS: Enoxaparin 30 MG (0.3 mL) SYRINGE SC SCH ×2 (07:51→20:18)
[2023-07-03] MEDS: Nystatin 500,000 UNITS/5 ML UDCUP SSW SCH ×5 (07:52→20:24)
[2023-07-03] MEDS: traMADol HCl 50 MG TAB PO PRN ×2 (08:49→14:39)
[2023-07-03] MEDS ORDERED: Pantoprazole 40 MG VIAL IVP SCH (09:00)
[2023-07-03] MEDS ORDERED: Acetaminophen 500 MG TAB PO SCH (09:00)
[2023-07-03 09:08] LABS: Band 11 % (5-11); Monocytes 1 % (0-10)
[2023-07-03 09:09] LABS: Lymphocytes 11 % (21-51); Neutrophil 77 % (42-75); Polychromasia SLIGHT = 2-3 cells (100X) (0-2/hpf)
[2023-07-03 09:10] LABS: Platelet Adequacy Comment Appears Decreased
[2023-07-03] MEDS: Lidocaine 4% Patch TD SCH (13:57)
[2023-07-03] MEDS ORDERED: fentaNYL 50 mcg/mL 1 mL Vial SLOW IVP PRN (17:42)
[2023-07-03] MEDS ORDERED: traMADol HCl 50 MG TAB PO PRN (17:45)
[2023-07-03] MEDS ORDERED: Lactated Ringer's 1,000 ML IV SCH (17:45)
[2023-07-03] MEDS: Albumin 25% 25 GM (100 mL) BOT IVPB SCH ×2 (17:51→23:57)
[2023-07-03] MEDS: Micafungin 100 MG in Sodium Chloride 0.9% 100 ML IVPB SCH (20:18)
[2023-07-03] MEDS: DULoxetine 20 MG CAP PO SCH (20:19)
[2023-07-03] MEDS: fentaNYL 50 mcg/mL 1 mL Vial SLOW IVP PRN ×2 (20:21→23:55)
[2023-07-04] MEDS: Ketorolac Tromethamine 30 MG (1 mL) VIAL IVP SCH ×2 (03:21→09:52)
[2023-07-04] MEDS: fentaNYL 50 mcg/mL 1 mL Vial SLOW IVP PRN ×5 (04:20→21:24)
[2023-07-04] MEDS: Albumin 25% 25 GM (100 mL) BOT IVPB SCH (04:23)
[2023-07-04] MEDS: Transdermal Patch Removal TOP SCH ×2 (04:23→12:18)
[2023-07-04 05:12] LABS: Hematocrit 21.3 % (36.0-47.0); Hemoglobin 6.7 g/dL (12.0-16.0); Manual Diff?? YES; Mean Corpuscular HGB CONC 31.5 g/dL (32.0-36.0); Mean Corpuscular Volume 92.2 fl (78.0-98.0); Mean Platelet Volume 11.7 fL (7.4-10.4); Platelet Count 97 10x3/uL (130-400); RBC Distribution Width 17.8 % (11.5-14.5); Red Blood Cell (RBC) Count 2.31 mill/uL (4.20-5.40); White Blood Cell (WBC) Count 9.9 10x3/uL (4.8-10.8)
[2023-07-04 05:34] LABS: Anion Gap 12 mmol/L (10-20); BUN (Urea Nitrogen) 31 mg/dL (9.8-20.1); Calc. Creatinine Clearance 214 mL/min (70-130); Carbon Dioxide 25 mmol/L (22-29); Chloride 103 mmol/L (98-107); Estimated GFR 105; Glucose 95 mg/dL (70-105); Potassium 3.9 mmol/L (3.5-5.1); Sodium 136 mmol/L (136-145)
[2023-07-04 05:36] LABS: Delete Auto Diff?? YES
[2023-07-04] MEDS: Piperacillin/Tazobactam 3.375 GM in Sodium Chloride 0.9% 100 ML IVPB SCH ×3 (06:06→21:25)
[2023-07-04 06:32] LABS: Anisocytosis SLIGHT = 6-15 cells HPF (0-5); Band 2 % (5-11); CellaVision Operator ID lab.abc; Eosinophils 1 % (0-10); Lymphocytes 15 % (21-51); Monocytes 1 % (0-10); Neutrophil 81 % (42-75); Platelet Adequacy Comment Platelets Decreased; Polychromasia SLIGHT = 2-3 cells HPF (0-2); Total Cell Count 101; Toxic Granulation SLIGHT
[2023-07-04] MEDS: Albuterol 2.5 MG (3 mL) NEB EZPAP SCH ×4 (07:21→21:55)
[2023-07-04] MEDS ORDERED: Furosemide 40 MG (4 mL) VIAL SLOW IVP SCH ×2 (08:30→15:00)
[2023-07-04] MEDS: Enoxaparin 100 MG (1 mL) SYRINGE SC SCH ×2 (09:17→20:36)
[2023-07-04] MEDS: Enoxaparin 30 MG (0.3 mL) SYRINGE SC SCH ×2 (09:17→20:36)
[2023-07-04] MEDS: Insulin Glargine 30 UNITS/0.3 ML VIAL SC SCH (09:31)
[2023-07-04] MEDS: Nystatin 500,000 UNITS/5 ML UDCUP SSW SCH ×4 (09:37→20:35)
[2023-07-04] MEDS: Acetaminophen 500 MG TAB PO SCH ×4 (09:38→20:37)
[2023-07-04] MEDS: Lidocaine 4% Patch TD SCH (11:52)
[2023-07-04 15:09] LABS: Hemoglobin 7.5 g/dL (12.0-16.0); Manual Diff?? YES; Mean Corpuscular HGB CONC 32.6 g/dL (32.0-36.0); Mean Corpuscular Hemoglobin 29.5 pg (27.0-31.0); Mean Corpuscular Volume 90.6 fl (78.0-98.0); Mean Platelet Volume 11.4 fL (7.4-10.4); Red Blood Cell (RBC) Count 2.54 mill/uL (4.20-5.40); White Blood Cell (WBC) Count 10.7 10x3/uL (4.8-10.8)
[2023-07-04 15:13] LABS: Delete Auto Diff?? YES; Platelet Count 108 10x3/uL (130-400)
[2023-07-04 15:59] LABS: Anisocytosis SLIGHT = 6-15 cells HPF (0-5); Band 22 % (5-11); CellaVision Operator ID LAB.MJL; Eosinophils 1 % (0-10); Lymphocytes 7 % (21-51); Metamyelocyte 3 % (0-0); Monocytes 5 % (0-10); Myelocyte 2 % (0-0); Neutrophil 58 % (42-75); Ovalocytes SLIGHT = 2-5 cells HPF (0-1); Platelet Adequacy Comment Platelets Decreased; Polychromasia MODERATE = 3-4 cells HPF (0-2); Reactive Lymphocytes 2 % (0-10); Total Cell Count 100
[2023-07-04] MEDS: DULoxetine 20 MG CAP PO SCH (20:37)
[2023-07-04] MEDS: Micafungin 100 MG in Sodium Chloride 0.9% 100 ML IVPB SCH (20:37)
[2023-07-04 22:01] LABS: Hematocrit 23.8 % (36.0-47.0); Hemoglobin 7.7 g/dL (12.0-16.0); Manual Diff?? YES; Mean Corpuscular HGB CONC 32.4 g/dL (32.0-36.0); Mean Corpuscular Hemoglobin 29.2 pg (27.0-31.0); Mean Corpuscular Volume 90.2 fl (78.0-98.0); Mean Platelet Volume 11.1 fL (7.4-10.4); Platelet Count 124 10x3/uL (130-400); RBC Distribution Width 17.4 % (11.5-14.5); Red Blood Cell (RBC) Count 2.64 mill/uL (4.20-5.40)
[2023-07-04 22:07] LABS: Delete Auto Diff?? YES
[2023-07-04 22:37] LABS: Band 24 % (5-11); CellaVision Operator ID LAB.CLH1; Hypochromia SLIGHT = 6-15 cells HPF (0-5); Lymphocytes 6 % (21-51); Monocytes 4 % (0-10); Neutrophil 66 % (42-75); Platelet Adequacy Comment Platelets Decreased; Polychromasia SLIGHT = 2-3 cells HPF (0-2); Total Cell Count 101
[2023-07-05] MEDS: fentaNYL 50 mcg/mL 1 mL Vial SLOW IVP PRN ×4 (04:00→18:52)
[2023-07-05] MEDS: Piperacillin/Tazobactam 3.375 GM in Sodium Chloride 0.9% 100 ML IVPB SCH ×3 (06:33→22:45)
[2023-07-05 07:04] LABS: Hematocrit 24.9 % (36.0-47.0); Manual Diff?? YES; Mean Corpuscular HGB CONC 32.1 g/dL (32.0-36.0); Mean Corpuscular Hemoglobin 29.2 pg (27.0-31.0); Mean Corpuscular Volume 90.9 fl (78.0-98.0); Mean Platelet Volume 10.6 fL (7.4-10.4); Platelet Count 141 10x3/uL (130-400); RBC Distribution Width 18.2 % (11.5-14.5); Red Blood Cell (RBC) Count 2.74 mill/uL (4.20-5.40)
[2023-07-05 07:23] LABS: Anion Gap 13 mmol/L (10-20); BUN (Urea Nitrogen) 22 mg/dL (9.8-20.1); Calc. Creatinine Clearance 237 mL/min (70-130); Calcium 7.9 mg/dL (7.8-10.44); Carbon Dioxide 25 mmol/L (22-29); Chloride 103 mmol/L (98-107); Estimated GFR 108; Glucose 101 mg/dL (70-105); Sodium 138 mmol/L (136-145)
[2023-07-05 07:30] LABS: INR-International Normal Ratio 1.2; PTT 39.9 sec (22.9-36.1); Prothrombin Time 15.5 sec (12.0-14.7)
[2023-07-05] MEDS: Albuterol 2.5 MG (3 mL) NEB EZPAP SCH ×3 (07:33→19:08)
[2023-07-05 07:39] LABS: Delete Auto Diff?? YES
[2023-07-05 08:24] LABS: Band 17 % (5-11); CellaVision Operator ID LAB.GE; Lymphocytes 6 % (21-51); Metamyelocyte 1 % (0-0); Myelocyte 2 % (0-0); Neutrophil 73 % (42-75); Nucleated RBC (Manual Ct) 1 % (0); Platelet Adequacy Comment Platelets Normal; Polychromasia MODERATE = 3-4 cells HPF (0-2); Reactive Lymphocytes 1 % (0-10); Total Cell Count 99
[2023-07-05] MEDS: Acetaminophen 325 MG TAB PO SCH ×3 (09:41→20:21)
[2023-07-05] MEDS ORDERED: Magnesium 2 GM/50 ML(in water) 2 GM in Premix 1 BAG IVPB SCH (10:00)
[2023-07-05] MEDS ORDERED: Furosemide 40 MG (4 mL) VIAL SLOW IVP SCH ×2 (10:00→16:00)
[2023-07-05 10:14] LABS: Magnesium 1.8 mg/dL (1.6-2.6)
[2023-07-05] MEDS: Nystatin 500,000 UNITS/5 ML UDCUP SSW SCH ×4 (10:36→20:23)
[2023-07-05] MEDS: Insulin Glargine 30 UNITS/0.3 ML VIAL SC SCH (10:36)
[2023-07-05] MEDS: Enoxaparin 100 MG (1 mL) SYRINGE SC SCH ×2 (10:37→20:22)
[2023-07-05] MEDS: Enoxaparin 30 MG (0.3 mL) SYRINGE SC SCH ×2 (10:37→20:23)
[2023-07-05] MEDS: Potassium Chloride 20 MEQ in Premix 1 BAG IVPB SCH ×2 (10:49→13:40)
[2023-07-05] MEDS: HYDROcodone/Acetaminophen 10/325 mg Tablet PO SCH ×3 (11:10→20:21)
[2023-07-05] MEDS: Lidocaine 4% Patch TD SCH (13:41)
[2023-07-05] MEDS: DULoxetine 20 MG CAP PO SCH (20:20)
[2023-07-05] MEDS: Micafungin 100 MG in Sodium Chloride 0.9% 100 ML IVPB SCH (20:22)
[2023-07-06] MEDS: Albuterol 2.5 MG (3 mL) NEB EZPAP SCH ×4 (01:33→19:03)
[2023-07-06] MEDS: Transdermal Patch Removal TOP SCH (01:35)
[2023-07-06] MEDS: HYDROcodone/Acetaminophen 10/325 mg Tablet PO SCH ×4 (02:40→20:48)
[2023-07-06] MEDS: Piperacillin/Tazobactam 3.375 GM in Sodium Chloride 0.9% 100 ML IVPB SCH (06:05)
[2023-07-06 06:21] LABS: #Monocytes 0.5 thou/uL (0.11-0.59); #Neutrophils 9.6 thou/uL (1.40-6.50); %Basophils 0.3 % (0.0-1.0); %Eosinophils 0.2 % (0.0-10.0); %Lymphocytes 16.8 % (21.0-51.0); %Monocytes 3.7 % (0.0-10.0); %Neutrophils 75.9 % (42.0-75.0); Hematocrit 24.8 % (36.0-47.0); Hemoglobin 8.2 g/dL (12.0-16.0); Mean Corpuscular HGB CONC 33.1 g/dL (32.0-36.0); Mean Corpuscular Hemoglobin 30.3 pg (27.0-31.0); Mean Corpuscular Volume 91.5 fl (78.0-98.0); Mean Platelet Volume 10.7 fL (7.4-10.4); Platelet Count 179 10x3/uL (130-400); RBC Distribution Width 19.1 % (11.5-14.5); Red Blood Cell (RBC) Count 2.71 mill/uL (4.20-5.40); White Blood Cell (WBC) Count 12.7 10x3/uL (4.8-10.8)
[2023-07-06 06:42] LABS: Anion Gap 15 mmol/L (10-20); BUN (Urea Nitrogen) 14 mg/dL (9.8-20.1); Calc. Creatinine Clearance 275 mL/min (70-130); Calcium 7.3 mg/dL (7.8-10.44); Carbon Dioxide 26 mmol/L (22-29); Chloride 102 mmol/L (98-107); Estimated GFR 112; Glucose 109 mg/dL (70-105); Potassium 3.4 mmol/L (3.5-5.1); Sodium 140 mmol/L (136-145)
[2023-07-06] MEDS ORDERED: Potassium Chloride 20 MEQ TAB PO SCH (10:00)
[2023-07-06] MEDS: Enoxaparin 30 MG (0.3 mL) SYRINGE SC SCH ×2 (10:01→20:49)
[2023-07-06] MEDS: Nystatin 500,000 UNITS/5 ML UDCUP SSW SCH ×4 (10:01→21:20)
[2023-07-06] MEDS: Enoxaparin 100 MG (1 mL) SYRINGE SC SCH ×2 (10:01→20:49)
[2023-07-06] MEDS: Acetaminophen 325 MG TAB PO SCH ×3 (10:02→20:48)
[2023-07-06] MEDS: Insulin Glargine 30 UNITS/0.3 ML VIAL SC SCH (10:02)
[2023-07-06] MEDS ORDERED: Meropenem 1 GM in Sodium Chloride 0.9% 100 ML IVPB SCH (10:30)
[2023-07-06] MEDS ORDERED: Potassium Bicarbonate/Cit Ac 20 MEQ TAB PO SCH (11:30)
[2023-07-06] MEDS: Lidocaine 4% Patch TD SCH (12:23)
[2023-07-06] MEDS: Meropenem 1 GM in Sodium Chloride 0.9% 100 ML IVPB SCH (18:22)
[2023-07-06] MEDS: DULoxetine 20 MG CAP PO SCH (20:49)
[2023-07-06] MEDS: Micafungin 100 MG in Sodium Chloride 0.9% 100 ML IVPB SCH (21:19)
[2023-07-07] MEDS: Albuterol 2.5 MG (3 mL) NEB EZPAP SCH ×4 (00:53→20:28)
[2023-07-07] MEDS: Meropenem 1 GM in Sodium Chloride 0.9% 100 ML IVPB SCH ×3 (02:20→17:30)
[2023-07-07] MEDS: HYDROcodone/Acetaminophen 10/325 mg Tablet PO SCH ×4 (02:20→20:46)
[2023-07-07] MEDS: Transdermal Patch Removal TOP SCH (02:24)
[2023-07-07 07:45] LABS: #Basophils 0.1 thou/uL (0.0-0.2); #Monocytes 0.5 thou/uL (0.11-0.59); #Neutrophils 9.1 thou/uL (1.40-6.50); %Basophils 0.7 % (0.0-1.0); %Eosinophils 0.3 % (0.0-10.0); %Monocytes 3.9 % (0.0-10.0); %Neutrophils 72.6 % (42.0-75.0); Hematocrit 28.5 % (36.0-47.0); Hemoglobin 8.7 g/dL (12.0-16.0); Mean Corpuscular HGB CONC 30.5 g/dL (32.0-36.0); Mean Corpuscular Hemoglobin 28.9 pg (27.0-31.0); Mean Corpuscular Volume 94.7 fl (78.0-98.0); Mean Platelet Volume 10.3 fL (7.4-10.4); Platelet Count 191 10x3/uL (130-400); RBC Distribution Width 19.9 % (11.5-14.5); Red Blood Cell (RBC) Count 3.01 mill/uL (4.20-5.40); White Blood Cell (WBC) Count 12.5 10x3/uL (4.8-10.8)
[2023-07-07 08:06] LABS: Anion Gap 13 mmol/L (10-20); BUN (Urea Nitrogen) 12 mg/dL (9.8-20.1); Calc. Creatinine Clearance 282 mL/min (70-130); Carbon Dioxide 27 mmol/L (22-29); Chloride 101 mmol/L (98-107); Estimated GFR 112; Glucose 85 mg/dL (70-105); Potassium 3.2 mmol/L (3.5-5.1); Sodium 138 mmol/L (136-145)
[2023-07-07] MEDS ORDERED: Iopamidol-370 76% 500 ML MDV (1 ML CHARGE) ONE (08:48)
[2023-07-07] MEDS: Insulin Glargine 30 UNITS/0.3 ML VIAL SC SCH (08:58)
[2023-07-07] MEDS: Enoxaparin 30 MG (0.3 mL) SYRINGE SC SCH (08:58)
[2023-07-07] MEDS: Enoxaparin 100 MG (1 mL) SYRINGE SC SCH (08:59)
[2023-07-07] MEDS: Acetaminophen 325 MG TAB PO SCH ×3 (08:59→20:47)
[2023-07-07] MEDS: Nystatin 500,000 UNITS/5 ML UDCUP SSW SCH ×4 (09:00→20:48)
[2023-07-07] MEDS ORDERED: Potassium Chloride 20 MEQ TAB PO SCH (09:30)
[2023-07-07] MEDS ORDERED: Magnesium 2 GM/50 ML(in water) 2 GM in Premix 1 BAG IVPB SCH (09:45)
[2023-07-07] MEDS ORDERED: Potassium Chloride 20 MEQ in Premix 1 BAG IVPB SCH (09:45)
[2023-07-07 10:10] LABS: Magnesium 1.7 mg/dL (1.6-2.6); Phosphorus 2.6 mg/dL (2.3-4.7)
[2023-07-07] MEDS: fentaNYL 50 mcg/mL 1 mL Vial SLOW IVP PRN (10:12)
[2023-07-07] MEDS: Lidocaine 4% Patch TD SCH (15:13)
[2023-07-07] MEDS: Cyclobenzaprine 10 MG TAB PO PRN (20:48)
[2023-07-07] MEDS: DULoxetine 20 MG CAP PO SCH (20:48)
[2023-07-07] MEDS: Morphine 4 MG/ML VIAL SLOW IVP PRN (20:48)
[2023-07-07] MEDS: Micafungin 100 MG in Sodium Chloride 0.9% 100 ML IVPB SCH (21:03)
[2023-07-08] MEDS: Albuterol 2.5 MG (3 mL) NEB EZPAP SCH ×4 (01:48→19:48)
[2023-07-08] MEDS: Meropenem 1 GM in Sodium Chloride 0.9% 100 ML IVPB SCH ×3 (02:52→18:29)
[2023-07-08] MEDS: HYDROcodone/Acetaminophen 10/325 mg Tablet PO SCH ×4 (02:52→21:04)
[2023-07-08] MEDS: Transdermal Patch Removal TOP SCH (02:52)
[2023-07-08 09:10] LABS: Hematocrit 27.3 % (36.0-47.0); Hemoglobin 8.6 g/dL (12.0-16.0); Manual Diff?? YES; Mean Corpuscular HGB CONC 31.5 g/dL (32.0-36.0); Mean Corpuscular Hemoglobin 29.6 pg (27.0-31.0); Mean Corpuscular Volume 93.8 fl (78.0-98.0); Mean Platelet Volume 9.5 fL (7.4-10.4); Platelet Count 197 10x3/uL (130-400); RBC Distribution Width 19.9 % (11.5-14.5); Red Blood Cell (RBC) Count 2.91 mill/uL (4.20-5.40); White Blood Cell (WBC) Count 10.4 10x3/uL (4.8-10.8)
[2023-07-08 09:25] LABS: Delete Auto Diff?? YES
[2023-07-08 09:29] LABS: Anion Gap 10 mmol/L (10-20); BUN (Urea Nitrogen) 9 mg/dL (9.8-20.1); Calc. Creatinine Clearance 321 mL/min (70-130); Calcium 7.8 mg/dL (7.8-10.44); Carbon Dioxide 28 mmol/L (22-29); Chloride 101 mmol/L (98-107); Estimated GFR 116; Glucose 71 mg/dL (70-105); Potassium 3.2 mmol/L (3.5-5.1); Sodium 136 mmol/L (136-145)
[2023-07-08] MEDS: fentaNYL 50 mcg/mL 1 mL Vial SLOW IVP PRN (09:44)
[2023-07-08] MEDS: Acetaminophen 325 MG TAB PO SCH ×3 (09:47→21:05)
[2023-07-08] MEDS: Insulin Glargine 30 UNITS/0.3 ML VIAL SC SCH (09:47)
[2023-07-08] MEDS: Nystatin 500,000 UNITS/5 ML UDCUP SSW SCH ×4 (10:33→21:23)
[2023-07-08] MEDS ORDERED: fentaNYL 50 mcg/mL 1 mL Vial ONE (10:56)
[2023-07-08] MEDS ORDERED: Sodium Bicarbonate 0.5 MEQ/ML SDV 10 ML ONE (10:57)
[2023-07-08] MEDS ORDERED: Lidocaine 1% w/Epinephrine 1:100K 20 ML VIAL ONE (10:57)
[2023-07-08] MEDS ORDERED: Potassium Chloride 20 MEQ TAB PO SCH ×2 (11:00→18:00)
[2023-07-08] MEDS ORDERED: Midazolam HCl 2 mg/2 ml Vial ONE (11:05)
[2023-07-08 11:27] LABS: Band 10 % (5-11); CellaVision Operator ID LAB.GE; Lymphocytes 13 % (21-51); Metamyelocyte 2 % (0-0); Monocytes 4 % (0-10); Myelocyte 3 % (0-0); Neutrophil 68 % (42-75); Platelet Adequacy Comment Platelets Normal; Polychromasia SLIGHT = 2-3 cells HPF (0-2); Total Cell Count 100
[2023-07-08] MEDS: Lidocaine 4% Patch TD SCH (12:40)
[2023-07-08] MEDS ORDERED: Lorazepam 2 MG/ML VIAL SLOW IVP SCH (14:45)
[2023-07-08] MEDS ORDERED: Enoxaparin 30 MG (0.3 mL) SYRINGE SC SCH (15:30)
[2023-07-08] MEDS ORDERED: Enoxaparin 100 MG (1 mL) SYRINGE SC SCH (15:30)
[2023-07-08] MEDS: DULoxetine 20 MG CAP PO SCH (21:04)
[2023-07-08] MEDS: Cyclobenzaprine 10 MG TAB PO PRN (21:05)
[2023-07-08] MEDS: Micafungin 100 MG in Sodium Chloride 0.9% 100 ML IVPB SCH (21:05)
[2023-07-08] MEDS: Morphine 4 MG/ML VIAL SLOW IVP PRN (21:09)
[2023-07-09] MEDS: Albuterol 2.5 MG (3 mL) NEB EZPAP SCH ×3 (00:02→13:54)
[2023-07-09] MEDS: HYDROcodone/Acetaminophen 10/325 mg Tablet PO SCH ×4 (02:48→21:07)
[2023-07-09] MEDS: Meropenem 1 GM in Sodium Chloride 0.9% 100 ML IVPB SCH ×3 (02:48→18:00)
[2023-07-09] MEDS: Transdermal Patch Removal TOP SCH (02:49)
[2023-07-09 04:57] LABS: #Monocytes 0.5 thou/uL (0.11-0.59); #Neutrophils 6.6 thou/uL (1.40-6.50); %Basophils 0.4 % (0.0-1.0); %Eosinophils 0.4 % (0.0-10.0); %Lymphocytes 18.3 % (21.0-51.0); %Monocytes 5.3 % (0.0-10.0); %Neutrophils 71.1 % (42.0-75.0); Hematocrit 26.3 % (36.0-47.0); Hemoglobin 7.9 g/dL (12.0-16.0); Mean Corpuscular Hemoglobin 28.2 pg (27.0-31.0); Mean Corpuscular Volume 93.9 fl (78.0-98.0); Mean Platelet Volume 9.2 fL (7.4-10.4); Platelet Count 184 10x3/uL (130-400); White Blood Cell (WBC) Count 9.3 10x3/uL (4.8-10.8)
[2023-07-09 05:23] LABS: Anion Gap 11 mmol/L (10-20); BUN (Urea Nitrogen) 10 mg/dL (9.8-20.1); Calc. Creatinine Clearance 345 mL/min (70-130); Calcium 7.6 mg/dL (7.8-10.44); Carbon Dioxide 27 mmol/L (22-29); Chloride 102 mmol/L (98-107); Estimated GFR 118; Glucose 72 mg/dL (70-105); Sodium 137 mmol/L (136-145)
[2023-07-09] MEDS ORDERED: Magnesium 2 GM/50 ML(in water) 2 GM in Premix 1 BAG IVPB SCH (06:45)
[2023-07-09] MEDS: Nystatin 500,000 UNITS/5 ML UDCUP SSW SCH ×4 (08:03→21:09)
[2023-07-09] MEDS ORDERED: Potassium Bicarbonate/Cit Ac 20 MEQ TAB PO SCH (08:45)
[2023-07-09] MEDS: Acetaminophen 325 MG TAB PO SCH ×3 (08:48→21:07)
[2023-07-09] MEDS: Potassium Chloride 20 MEQ in Premix 1 BAG IVPB SCH ×2 (08:51→11:50)
[2023-07-09] MEDS: Insulin Glargine 30 UNITS/0.3 ML VIAL SC SCH (08:54)
[2023-07-09] MEDS: Lidocaine 4% Patch TD SCH (11:50)
[2023-07-09] MEDS ORDERED: Sodium Bicarbonate 0.5 MEQ/ML SDV 10 ML ONE (11:54)
[2023-07-09] MEDS ORDERED: Lidocaine 1% w/Epinephrine 1:100K 20 ML VIAL ONE (11:54)
[2023-07-09] MEDS ORDERED: Lidocaine 1% PF 5 ML VIAL ONE ×2 (11:54→11:55)
[2023-07-09] MEDS ORDERED: Midazolam HCl 2 mg/2 ml Vial ONE (11:56)
[2023-07-09] MEDS ORDERED: fentaNYL PF 100 MCG/2 ML SYRINGE ONE (11:56)
[2023-07-09] MEDS ORDERED: Propofol 500 MG/50 ML VIAL ONE ×2 (11:57→12:19)
[2023-07-09] MEDS ORDERED: Ketamine In 0.9 % NaCl 50 MG/5 ML SYRINGE ONE (11:57)
[2023-07-09] MEDS ORDERED: PACU-Morphine 4MG/ML VIAL SLOW IVP PRN (13:15)
[2023-07-09] MEDS ORDERED: HYDROmorphone 2 MG/ML VIAL SLOW IVP PRN (13:15)
[2023-07-09] MEDS ORDERED: Ondansetron HCl/PF 4 MG/2 ML Vial IVP PRN (13:15)
[2023-07-09] MEDS ORDERED: Promethazine HCl 25 MG/ML VIAL IM PRN (13:15)
[2023-07-09] MEDS ORDERED: Metoprolol Tartrate 5 MG (5 mL) VIAL ONE (13:20)
[2023-07-09] MEDS ORDERED: Albuterol 2.5 MG (3 mL) NEB EZPAP PRN (14:45)
[2023-07-09] MEDS: Potassium Chloride 40 MEQ in Sodium Chloride 0.45% 1,000 ML IV SCH ×2 (15:04→18:03)
[2023-07-09 15:20] LABS: BF Color Red; Clarity Cloudy/Turbid (Clear); Tube # EDTA
[2023-07-09 15:21] LABS: Body Fluid Source Abscess Fluid
[2023-07-09] MEDS: DULoxetine 20 MG CAP PO SCH (21:07)
[2023-07-09] MEDS: Cyclobenzaprine 10 MG TAB PO PRN (21:07)
[2023-07-09] MEDS: Micafungin 100 MG in Sodium Chloride 0.9% 100 ML IVPB SCH (21:08)
[2023-07-10] MEDS: Meropenem 1 GM in Sodium Chloride 0.9% 100 ML IVPB SCH ×3 (01:33→18:23)
[2023-07-10] MEDS: HYDROcodone/Acetaminophen 10/325 mg Tablet PO SCH ×4 (01:34→21:21)
[2023-07-10] MEDS: Transdermal Patch Removal TOP SCH (01:36)
[2023-07-10] MEDS ORDERED: Potassium Bicarbonate/Cit Ac 20 MEQ TAB PO SCH (09:00)
[2023-07-10] MEDS: Apixaban 5 MG TAB PO SCH ×2 (09:22→21:21)
[2023-07-10] MEDS: Acetaminophen 325 MG TAB PO SCH ×3 (09:22→21:21)
[2023-07-10] MEDS: Insulin Glargine 30 UNITS/0.3 ML VIAL SC SCH (09:23)
[2023-07-10 09:47] LABS: #Eosinphils 0.1 thou/uL (0.0-0.7); #Monocytes 0.6 thou/uL (0.11-0.59); #Neutrophils 6.9 thou/uL (1.40-6.50); %Basophils 0.2 % (0.0-1.0); %Eosinophils 0.5 % (0.0-10.0); %Lymphocytes 23.2 % (21.0-51.0); %Monocytes 5.5 % (0.0-10.0); %Neutrophils 66.8 % (42.0-75.0); Hematocrit 25.6 % (36.0-47.0); Hemoglobin 7.9 g/dL (12.0-16.0); Mean Corpuscular HGB CONC 30.9 g/dL (32.0-36.0); Mean Corpuscular Hemoglobin 29.3 pg (27.0-31.0); Mean Corpuscular Volume 94.8 fl (78.0-98.0); Platelet Count 205 10x3/uL (130-400); RBC Distribution Width 19.7 % (11.5-14.5); White Blood Cell (WBC) Count 10.3 10x3/uL (4.8-10.8)
[2023-07-10] MEDS: Nystatin 500,000 UNITS/5 ML UDCUP SSW SCH ×4 (10:02→21:21)
[2023-07-10] MEDS: Potassium Chloride 40 MEQ in Sodium Chloride 0.45% 1,000 ML IV SCH ×2 (10:03→14:21)
[2023-07-10 10:51] LABS: Phosphorus 2.9 mg/dL (2.3-4.7)
[2023-07-10 10:52] LABS: Anion Gap 14 mmol/L (10-20); BUN (Urea Nitrogen) 10 mg/dL (9.8-20.1); Calc. Creatinine Clearance 305 mL/min (70-130); Calcium 7.4 mg/dL (7.8-10.44); Carbon Dioxide 25 mmol/L (22-29); Chloride 102 mmol/L (98-107); Estimated GFR 114; Glucose 78 mg/dL (70-105); Magnesium 2.2 mg/dL (1.6-2.6); Potassium 3.3 mmol/L (3.5-5.1); Sodium 138 mmol/L (136-145)
[2023-07-10] MEDS: Lidocaine 4% Patch TD SCH (11:14)
[2023-07-10] MEDS: Morphine 4 MG/ML VIAL SLOW IVP PRN (14:48)
[2023-07-10] MEDS: Micafungin 100 MG in Sodium Chloride 0.9% 100 ML IVPB SCH (21:20)
[2023-07-10] MEDS: DULoxetine 20 MG CAP PO SCH (21:21)
[2023-07-11] MEDS: Transdermal Patch Removal TOP SCH (02:46)
[2023-07-11] MEDS: Meropenem 1 GM in Sodium Chloride 0.9% 100 ML IVPB SCH ×3 (02:47→18:34)
[2023-07-11] MEDS: HYDROcodone/Acetaminophen 10/325 mg Tablet PO SCH ×4 (02:47→21:27)
[2023-07-11] MEDS: Potassium Chloride 40 MEQ in Sodium Chloride 0.45% 1,000 ML IV SCH ×2 (04:07→10:46)
[2023-07-11 06:58] LABS: #Monocytes 0.7 thou/uL (0.11-0.59); #Neutrophils 6.7 thou/uL (1.40-6.50); %Basophils 0.2 % (0.0-1.0); %Eosinophils 0.3 % (0.0-10.0); %Monocytes 6.4 % (0.0-10.0); %Neutrophils 64.9 % (42.0-75.0); Hematocrit 26.2 % (36.0-47.0); Hemoglobin 7.9 g/dL (12.0-16.0); Mean Corpuscular HGB CONC 30.2 g/dL (32.0-36.0); Mean Corpuscular Hemoglobin 28.9 pg (27.0-31.0); Mean Platelet Volume 9.1 fL (7.4-10.4); Platelet Count 223 10x3/uL (130-400); RBC Distribution Width 19.2 % (11.5-14.5); Red Blood Cell (RBC) Count 2.73 mill/uL (4.20-5.40); White Blood Cell (WBC) Count 10.3 10x3/uL (4.8-10.8)
[2023-07-11 07:42] LABS: Anion Gap 13 mmol/L (10-20); BUN (Urea Nitrogen) 10 mg/dL (9.8-20.1); Calc. Creatinine Clearance 305 mL/min (70-130); Calcium 7.4 mg/dL (7.8-10.44); Carbon Dioxide 25 mmol/L (22-29); Chloride 104 mmol/L (98-107); Estimated GFR 114; Glucose 70 mg/dL (70-105); Potassium 3.9 mmol/L (3.5-5.1); Sodium 138 mmol/L (136-145)
[2023-07-11] MEDS: Insulin Glargine 30 UNITS/0.3 ML VIAL SC SCH (09:26)
[2023-07-11] MEDS: Nystatin 500,000 UNITS/5 ML UDCUP SSW SCH ×4 (09:27→21:27)
[2023-07-11] MEDS: Apixaban 5 MG TAB PO SCH ×2 (09:28→21:29)
[2023-07-11] MEDS: Acetaminophen 325 MG TAB PO SCH ×3 (09:28→21:28)
[2023-07-11] MEDS: Lidocaine 4% Patch TD SCH (10:46)
[2023-07-11] MEDS: Cyclobenzaprine 10 MG TAB PO PRN (15:10)
[2023-07-11] MEDS ORDERED: Furosemide 40 MG (4 mL) VIAL SLOW IVP SCH (17:30)
[2023-07-11] MEDS: Micafungin 100 MG in Sodium Chloride 0.9% 100 ML IVPB SCH (21:26)
[2023-07-11] MEDS: DULoxetine 20 MG CAP PO SCH (21:28)
[2023-07-12] MEDS: HYDROcodone/Acetaminophen 10/325 mg Tablet PO SCH ×4 (01:37→20:53)
[2023-07-12] MEDS: Meropenem 1 GM in Sodium Chloride 0.9% 100 ML IVPB SCH ×3 (02:03→17:45)
[2023-07-12] MEDS: Ondansetron ODT 4 MG TAB PO PRN (02:13)
[2023-07-12] MEDS: Transdermal Patch Removal TOP SCH (04:40)
[2023-07-12 05:55] LABS: #Monocytes 0.7 thou/uL (0.11-0.59); #Neutrophils 7.6 thou/uL (1.40-6.50); %Basophils 0.4 % (0.0-1.0); %Eosinophils 0.3 % (0.0-10.0); %Monocytes 6.4 % (0.0-10.0); %Neutrophils 71.3 % (42.0-75.0); Hematocrit 26.6 % (36.0-47.0); Mean Corpuscular HGB CONC 30.1 g/dL (32.0-36.0); Mean Corpuscular Hemoglobin 28.5 pg (27.0-31.0); Mean Corpuscular Volume 94.7 fl (78.0-98.0); Platelet Count 240 10x3/uL (130-400); RBC Distribution Width 18.6 % (11.5-14.5); Red Blood Cell (RBC) Count 2.81 mill/uL (4.20-5.40); White Blood Cell (WBC) Count 10.7 10x3/uL (4.8-10.8)
[2023-07-12 06:28] LABS: Anion Gap 10 mmol/L (10-20); BUN (Urea Nitrogen) 13 mg/dL (9.8-20.1); Calc. Creatinine Clearance 279 mL/min (70-130); Calcium 7.6 mg/dL (7.8-10.44); Carbon Dioxide 28 mmol/L (22-29); Chloride 103 mmol/L (98-107); Estimated GFR 111; Glucose 89 mg/dL (70-105); Potassium 3.7 mmol/L (3.5-5.1); Sodium 137 mmol/L (136-145)
[2023-07-12] MEDS: Apixaban 5 MG TAB PO SCH ×2 (08:25→20:53)
[2023-07-12] MEDS: Acetaminophen 325 MG TAB PO SCH ×3 (08:25→20:55)
[2023-07-12] MEDS: Insulin Glargine 30 UNITS/0.3 ML VIAL SC SCH (08:26)
[2023-07-12] MEDS: Nystatin 500,000 UNITS/5 ML UDCUP SSW SCH ×5 (08:27→23:31)
[2023-07-12] MEDS: Morphine 4 MG/ML VIAL SLOW IVP PRN (09:59)
[2023-07-12] MEDS: Lidocaine 4% Patch TD SCH (11:07)
[2023-07-12] MEDS: DULoxetine 20 MG CAP PO SCH (20:53)
[2023-07-12] MEDS: Micafungin 100 MG in Sodium Chloride 0.9% 100 ML IVPB SCH (20:56)
[2023-07-13] MEDS: Transdermal Patch Removal TOP SCH (02:07)
[2023-07-13] MEDS: Meropenem 1 GM in Sodium Chloride 0.9% 100 ML IVPB SCH ×2 (02:08→10:27)
[2023-07-13] MEDS: HYDROcodone/Acetaminophen 10/325 mg Tablet PO SCH ×4 (02:08→21:23)
[2023-07-13] MEDS: Acetaminophen 325 MG TAB PO SCH ×3 (08:58→21:24)
[2023-07-13] MEDS: Apixaban 5 MG TAB PO SCH ×2 (08:59→21:24)
[2023-07-13] MEDS: Nystatin 500,000 UNITS/5 ML UDCUP SSW SCH ×5 (08:59→21:27)
[2023-07-13] MEDS: Insulin Glargine 30 UNITS/0.3 ML VIAL SC SCH (09:00)
[2023-07-13] MEDS: Lidocaine 4% Patch TD SCH (12:52)
[2023-07-13 15:19] LABS: #Eosinphils 0.1 thou/uL (0.0-0.7); #Monocytes 0.9 thou/uL (0.11-0.59); #Neutrophils 6.9 thou/uL (1.40-6.50); %Basophils 0.4 % (0.0-1.0); %Eosinophils 0.7 % (0.0-10.0); %Lymphocytes 25.5 % (21.0-51.0); %Monocytes 7.7 % (0.0-10.0); %Neutrophils 63.1 % (42.0-75.0); Hematocrit 25.1 % (36.0-47.0); Hemoglobin 7.7 g/dL (12.0-16.0); Mean Corpuscular HGB CONC 30.7 g/dL (32.0-36.0); Mean Corpuscular Hemoglobin 29.3 pg (27.0-31.0); Mean Corpuscular Volume 95.4 fl (78.0-98.0); Mean Platelet Volume 8.7 fL (7.4-10.4); Platelet Count 271 10x3/uL (130-400); RBC Distribution Width 18.3 % (11.5-14.5); Red Blood Cell (RBC) Count 2.63 mill/uL (4.20-5.40)
[2023-07-13 15:43] LABS: Anion Gap 11 mmol/L (10-20); BUN (Urea Nitrogen) 17 mg/dL (9.8-20.1); Calc. Creatinine Clearance 211 mL/min (70-130); Calcium 7.6 mg/dL (7.8-10.44); Carbon Dioxide 27 mmol/L (22-29); Chloride 105 mmol/L (98-107); Estimated GFR 104; Glucose 96 mg/dL (70-105); Potassium 3.8 mmol/L (3.5-5.1); Sodium 139 mmol/L (136-145)
[2023-07-13] MEDS: cefTRIAXone\\ROCEPHIN 1 GM in Sodium Chloride 0.9% 100 ML IVPB SCH (15:51)
[2023-07-13] MEDS: DULoxetine 20 MG CAP PO SCH (21:24)
[2023-07-14] MEDS: Transdermal Patch Removal TOP SCH ×2 (00:20→23:07)
[2023-07-14] MEDS: HYDROcodone/Acetaminophen 10/325 mg Tablet PO SCH ×4 (02:31→20:22)
[2023-07-14 07:36] LABS: #Eosinphils 0.1 thou/uL (0.0-0.7); #Monocytes 0.6 thou/uL (0.11-0.59); #Neutrophils 5.2 thou/uL (1.40-6.50); %Basophils 0.4 % (0.0-1.0); %Eosinophils 0.7 % (0.0-10.0); %Lymphocytes 27.5 % (21.0-51.0); %Monocytes 6.7 % (0.0-10.0); Hematocrit 19.4 % (36.0-47.0); Hemoglobin 5.8 g/dL (12.0-16.0); Mean Corpuscular HGB CONC 29.9 g/dL (32.0-36.0); Mean Corpuscular Hemoglobin 28.7 pg (27.0-31.0); Mean Platelet Volume 8.7 fL (7.4-10.4); Platelet Count 194 10x3/uL (130-400); Red Blood Cell (RBC) Count 2.02 mill/uL (4.20-5.40); White Blood Cell (WBC) Count 8.5 10x3/uL (4.8-10.8)
[2023-07-14 08:11] LABS: Anion Gap 8 mmol/L (10-20); BUN (Urea Nitrogen) 13 mg/dL (9.8-20.1); Calc. Creatinine Clearance 268 mL/min (70-130); Calcium 5.7 mg/dL (7.8-10.44); Carbon Dioxide 21 mmol/L (22-29); Chloride 115 mmol/L (98-107); Critical Call Chemistry NUR.ABG@0810; Estimated GFR 110; Glucose 63 mg/dL (70-105); Potassium 2.8 mmol/L (3.5-5.1); Sodium 141 mmol/L (136-145)
[2023-07-14 08:12] LABS: Critical Call w/ Read Back NUR.ABG@0812
[2023-07-14] MEDS: Acetaminophen 325 MG TAB PO SCH ×3 (08:55→20:22)
[2023-07-14] MEDS: Potassium Chloride 20 MEQ TAB PO SCH ×2 (08:55→13:39)
[2023-07-14] MEDS: Insulin Glargine 30 UNITS/0.3 ML VIAL SC SCH (08:57)
[2023-07-14] MEDS ORDERED: Calcium Gluconate 4.6 MEQ in Sodium Chloride 0.9% 100 ML IVPB SCH (09:00)
[2023-07-14] MEDS: Nystatin 500,000 UNITS/5 ML UDCUP SSW SCH ×4 (09:15→20:23)
[2023-07-14] MEDS: Apixaban 5 MG TAB PO SCH (09:17)
[2023-07-14 10:40] LABS: Platelet Count 250 10x3/uL (130-400)
[2023-07-14 10:54] LABS: Fibrinogen 509 mg/dL (253-463)
[2023-07-14 10:55] LABS: INR-International Normal Ratio 1.9; Prothrombin Time 21.8 sec (12.0-14.7)
[2023-07-14 11:05] LABS: ALT (SGPT) Less than 7 U/L (8-55); AST (SGOT) 16 U/L (5-34); Albumin 1.7 g/dL (3.5-5.0); Alkaline Phosphatase 268 U/L (40-110); Bilirubin, Direct 0.2 mg/dL (0.1-0.3); Bilirubin, Total 0.4 mg/dL (0.2-1.2); Protein, Total 4.9 g/dL (6.0-8.3)
[2023-07-14] MEDS: Lidocaine 4% Patch TD SCH (12:41)
[2023-07-14] MEDS: Potassium Bicarbonate/Cit Ac 20 MEQ TAB PO SCH ×2 (14:57→20:22)
[2023-07-14] MEDS: cefTRIAXone\\ROCEPHIN 1 GM in Sodium Chloride 0.9% 100 ML IVPB SCH (14:59)
[2023-07-14] MEDS ORDERED: Senokot S 8.6-50 MG TAB PO SCH (15:00)
[2023-07-14 15:58] LABS: Bacteria/HPF None Seen HPF (None Seen); Bilirubin Negative (Negative); Blood, Urine 3+ (Negative); Clarity Extra Turbid (Clear); Glucose, Urine (Dipstick) Normal (Negative); Ketone, Urine Negative (Negative); Leukocyte 500 Leu/uL (Negative); Nitrite Negative (Negative); Protein, Urine (Dipstick) 100 mg/dL (Neg-Trace); RBC/HPF Greater than 50 HPF (0-3); Specific Gravity, Urine 1.015 (1.002-1.036); WBC/HPF Greater than 50 HPF (0-3); pH, Urine 7.5 (5.0-9.0)
[2023-07-14 18:55] LABS: Hematocrit 25.7 % (36.0-47.0); Mean Corpuscular HGB CONC 31.1 g/dL (32.0-36.0); Mean Corpuscular Hemoglobin 29.2 pg (27.0-31.0); Mean Corpuscular Volume 93.8 fl (78.0-98.0); Mean Platelet Volume 8.8 fL (7.4-10.4); Platelet Count 252 10x3/uL (130-400); RBC Distribution Width 17.9 % (11.5-14.5); Red Blood Cell (RBC) Count 2.74 mill/uL (4.20-5.40)
[2023-07-14] MEDS: Senokot S 8.6-50 MG TAB PO SCH (20:23)
[2023-07-14] MEDS: DULoxetine 20 MG CAP PO SCH (20:23)
[2023-07-15] MEDS: HYDROcodone/Acetaminophen 10/325 mg Tablet PO SCH ×4 (01:58→20:18)
[2023-07-15 06:00] LABS: #Basophils 0.1 thou/uL (0.0-0.2); #Eosinphils 0.1 thou/uL (0.0-0.7); #Monocytes 0.8 thou/uL (0.11-0.59); #Neutrophils 7.2 thou/uL (1.40-6.50); %Basophils 0.4 % (0.0-1.0); %Eosinophils 0.8 % (0.0-10.0); %Lymphocytes 26.9 % (21.0-51.0); %Monocytes 6.5 % (0.0-10.0); Hematocrit 25.3 % (36.0-47.0); Hemoglobin 7.9 g/dL (12.0-16.0); Mean Corpuscular HGB CONC 31.2 g/dL (32.0-36.0); Mean Corpuscular Hemoglobin 29.3 pg (27.0-31.0); Mean Corpuscular Volume 93.7 fl (78.0-98.0); Mean Platelet Volume 8.8 fL (7.4-10.4); Platelet Count 258 10x3/uL (130-400); RBC Distribution Width 17.6 % (11.5-14.5); White Blood Cell (WBC) Count 11.5 10x3/uL (4.8-10.8)
[2023-07-15 06:35] LABS: Anion Gap 10 mmol/L (10-20); BUN (Urea Nitrogen) 20 mg/dL (9.8-20.1); Calc. Creatinine Clearance 212 mL/min (70-130); Calcium 7.7 mg/dL (7.8-10.44); Carbon Dioxide 28 mmol/L (22-29); Chloride 104 mmol/L (98-107); Estimated GFR 104; Glucose 81 mg/dL (70-105); Potassium 4.5 mmol/L (3.5-5.1); Sodium 137 mmol/L (136-145)
[2023-07-15] MEDS: Nystatin 500,000 UNITS/5 ML UDCUP SSW SCH ×4 (08:31→20:20)
[2023-07-15] MEDS: Insulin Glargine 30 UNITS/0.3 ML VIAL SC SCH (08:31)
[2023-07-15] MEDS ORDERED: Apixaban 5 MG TAB PO SCH ×2 (09:00→21:00)
[2023-07-15] MEDS: Acetaminophen 325 MG TAB PO SCH ×3 (09:21→20:19)
[2023-07-15] MEDS: Senokot S 8.6-50 MG TAB PO SCH ×2 (09:22→20:19)
[2023-07-15] MEDS: Lidocaine 4% Patch TD SCH (12:22)
[2023-07-15] MEDS: cefTRIAXone\\ROCEPHIN 1 GM in Sodium Chloride 0.9% 100 ML IVPB SCH (15:30)
[2023-07-15] MEDS: DULoxetine 20 MG CAP PO SCH (20:20)
[2023-07-15] MEDS: Transdermal Patch Removal TOP SCH (23:46)
[2023-07-16] MEDS: HYDROcodone/Acetaminophen 10/325 mg Tablet PO SCH ×4 (02:50→20:09)
[2023-07-16 06:15] LABS: #Basophils 0.1 thou/uL (0.0-0.2); #Eosinphils 0.1 thou/uL (0.0-0.7); #Monocytes 0.8 thou/uL (0.11-0.59); #Neutrophils 7.6 thou/uL (1.40-6.50); %Basophils 0.4 % (0.0-1.0); %Eosinophils 0.5 % (0.0-10.0); %Lymphocytes 25.6 % (21.0-51.0); %Monocytes 6.5 % (0.0-10.0); %Neutrophils 64.6 % (42.0-75.0); Hematocrit 26.1 % (36.0-47.0); Hemoglobin 8.2 g/dL (12.0-16.0); Mean Corpuscular HGB CONC 31.4 g/dL (32.0-36.0); Mean Corpuscular Hemoglobin 29.4 pg (27.0-31.0); Mean Corpuscular Volume 93.5 fl (78.0-98.0); Mean Platelet Volume 8.8 fL (7.4-10.4); Platelet Count 283 10x3/uL (130-400); RBC Distribution Width 17.2 % (11.5-14.5); Red Blood Cell (RBC) Count 2.79 mill/uL (4.20-5.40); White Blood Cell (WBC) Count 11.8 10x3/uL (4.8-10.8)
[2023-07-16 06:30] LABS: Anion Gap 12 mmol/L (10-20); BUN (Urea Nitrogen) 21 mg/dL (9.8-20.1); Calc. Creatinine Clearance 179 mL/min (70-130); Calcium 7.8 mg/dL (7.8-10.44); Carbon Dioxide 26 mmol/L (22-29); Chloride 103 mmol/L (98-107); Estimated GFR 93; Glucose 87 mg/dL (70-105); Potassium 4.3 mmol/L (3.5-5.1); Sodium 137 mmol/L (136-145)
[2023-07-16] MEDS: Morphine 4 MG/ML VIAL SLOW IVP PRN (08:28)
[2023-07-16] MEDS: Acetaminophen 325 MG TAB PO SCH ×3 (08:36→20:09)
[2023-07-16] MEDS: Insulin Glargine 30 UNITS/0.3 ML VIAL SC SCH (08:36)
[2023-07-16] MEDS: Nystatin 500,000 UNITS/5 ML UDCUP SSW SCH ×4 (08:36→20:08)
[2023-07-16] MEDS: Senokot S 8.6-50 MG TAB PO SCH ×2 (08:37→20:09)
[2023-07-16] MEDS ORDERED: Iopamidol 30 ML ONE (12:30)
[2023-07-16] MEDS ORDERED: Rocuronium Bromide 10 MG/ML (10ML VIAL) ONE (12:42)
[2023-07-16] MEDS ORDERED: fentaNYL PF 100 MCG/2 ML SYRINGE ONE (12:44)
[2023-07-16] MEDS: Lidocaine 4% Patch TD SCH (13:02)
[2023-07-16] MEDS ORDERED: PROPOFOL 20 ML ONE (13:26)
[2023-07-16] MEDS ORDERED: fentaNYL 50 mcg/mL 1 mL Vial ONE ×2 (13:27→14:44)
[2023-07-16] MEDS ORDERED: PHENYLEPHRINE-NS 100 MCG/ML 10 ML SYRINGE ONE (13:50)
[2023-07-16] MEDS: cefTRIAXone\\ROCEPHIN 1 GM in Sodium Chloride 0.9% 100 ML IVPB SCH (15:42)
[2023-07-16] MEDS: DULoxetine 20 MG CAP PO SCH (20:10)
[2023-07-16] MEDS: Transdermal Patch Removal TOP SCH (21:01)
[2023-07-17] MEDS: HYDROcodone/Acetaminophen 10/325 mg Tablet PO SCH ×4 (01:53→20:09)
[2023-07-17 04:51] LABS: #Eosinphils 0.1 thou/uL (0.0-0.7); #Monocytes 0.6 thou/uL (0.11-0.59); #Neutrophils 6.3 thou/uL (1.40-6.50); %Basophils 0.4 % (0.0-1.0); %Eosinophils 0.5 % (0.0-10.0); %Lymphocytes 23.8 % (21.0-51.0); %Monocytes 6.4 % (0.0-10.0); %Neutrophils 66.1 % (42.0-75.0); Hematocrit 24.5 % (36.0-47.0); Hemoglobin 7.7 g/dL (12.0-16.0); Mean Corpuscular HGB CONC 31.4 g/dL (32.0-36.0); Mean Corpuscular Hemoglobin 29.3 pg (27.0-31.0); Mean Corpuscular Volume 93.2 fl (78.0-98.0); Mean Platelet Volume 8.6 fL (7.4-10.4); Platelet Count 266 10x3/uL (130-400); RBC Distribution Width 17.1 % (11.5-14.5); Red Blood Cell (RBC) Count 2.63 mill/uL (4.20-5.40); White Blood Cell (WBC) Count 9.5 10x3/uL (4.8-10.8)
[2023-07-17 05:31] LABS: Anion Gap 12 mmol/L (10-20); BUN (Urea Nitrogen) 22 mg/dL (9.8-20.1); Calc. Creatinine Clearance 166 mL/min (70-130); Calcium 7.7 mg/dL (7.8-10.44); Carbon Dioxide 25 mmol/L (22-29); Chloride 104 mmol/L (98-107); Estimated GFR 85; Glucose 84 mg/dL (70-105); Potassium 3.9 mmol/L (3.5-5.1); Sodium 137 mmol/L (136-145)
[2023-07-17] MEDS: Senokot S 8.6-50 MG TAB PO SCH ×2 (08:16→20:14)
[2023-07-17] MEDS: Enoxaparin 30 MG (0.3 mL) SYRINGE SC SCH ×2 (08:17→20:11)
[2023-07-17] MEDS: Acetaminophen 325 MG TAB PO SCH ×3 (08:17→20:10)
[2023-07-17] MEDS: Enoxaparin 100 MG (1 mL) SYRINGE SC SCH ×2 (08:22→20:11)
[2023-07-17] MEDS ORDERED: Apixaban 5 MG TAB PO SCH (09:00)
[2023-07-17] MEDS: Nystatin 500,000 UNITS/5 ML UDCUP SSW SCH ×4 (09:11→20:11)
[2023-07-17] MEDS: Insulin Glargine 30 UNITS/0.3 ML VIAL SC SCH (09:11)
[2023-07-17] MEDS: Lidocaine 4% Patch TD SCH (12:57)
[2023-07-17] MEDS: cefTRIAXone\\ROCEPHIN 1 GM in Sodium Chloride 0.9% 100 ML IVPB SCH (16:16)
[2023-07-17] MEDS: DULoxetine 20 MG CAP PO SCH (20:11)
[2023-07-17] MEDS: Transdermal Patch Removal TOP SCH (20:12)
[2023-07-18] MEDS: HYDROcodone/Acetaminophen 10/325 mg Tablet PO SCH ×4 (02:04→21:08)
[2023-07-18] MEDS: Acetaminophen 325 MG TAB PO SCH ×3 (08:34→21:07)
[2023-07-18] MEDS: Senokot S 8.6-50 MG TAB PO SCH ×2 (08:34→21:07)
[2023-07-18] MEDS: Enoxaparin 100 MG (1 mL) SYRINGE SC SCH ×2 (08:57→21:14)
[2023-07-18] MEDS: Insulin Glargine 30 UNITS/0.3 ML VIAL SC SCH (08:57)
[2023-07-18] MEDS: Nystatin 500,000 UNITS/5 ML UDCUP SSW SCH ×4 (08:57→21:14)
[2023-07-18] MEDS: Enoxaparin 30 MG (0.3 mL) SYRINGE SC SCH ×2 (08:57→21:14)
[2023-07-18 08:58] LABS: #Eosinphils 0.1 thou/uL (0.0-0.7); #Monocytes 0.8 thou/uL (0.11-0.59); #Neutrophils 7.5 thou/uL (1.40-6.50); %Basophils 0.4 % (0.0-1.0); %Eosinophils 0.4 % (0.0-10.0); %Lymphocytes 23.7 % (21.0-51.0); %Monocytes 7.2 % (0.0-10.0); Hematocrit 23.6 % (36.0-47.0); Hemoglobin 7.4 g/dL (12.0-16.0); Mean Corpuscular HGB CONC 31.4 g/dL (32.0-36.0); Mean Corpuscular Hemoglobin 29.1 pg (27.0-31.0); Mean Corpuscular Volume 92.9 fl (78.0-98.0); Mean Platelet Volume 8.7 fL (7.4-10.4); Platelet Count 250 10x3/uL (130-400); Red Blood Cell (RBC) Count 2.54 mill/uL (4.20-5.40); White Blood Cell (WBC) Count 11.4 10x3/uL (4.8-10.8)
[2023-07-18 09:20] LABS: Anion Gap 14 mmol/L (10-20); BUN (Urea Nitrogen) 21 mg/dL (9.8-20.1); Calc. Creatinine Clearance 152 mL/min (70-130); Calcium 7.4 mg/dL (7.8-10.44); Carbon Dioxide 24 mmol/L (22-29); Chloride 103 mmol/L (98-107); Estimated GFR 72; Glucose 119 mg/dL (70-105); Potassium 3.5 mmol/L (3.5-5.1); Sodium 137 mmol/L (136-145)
[2023-07-18] MEDS: Lidocaine 4% Patch TD SCH (12:26)
[2023-07-18] MEDS: Morphine 4 MG/ML VIAL SLOW IVP PRN (14:02)
[2023-07-18] MEDS: cefTRIAXone\\ROCEPHIN 1 GM in Sodium Chloride 0.9% 100 ML IVPB SCH (16:10)
[2023-07-18] MEDS: DULoxetine 20 MG CAP PO SCH (21:07)
[2023-07-18] MEDS: Transdermal Patch Removal TOP SCH (22:43)
[2023-07-19] MEDS: HYDROcodone/Acetaminophen 10/325 mg Tablet PO SCH ×4 (02:50→20:20)
[2023-07-19] MEDS: Cyclobenzaprine 10 MG TAB PO PRN ×2 (06:01→14:11)
[2023-07-19] MEDS: Acetaminophen 325 MG TAB PO SCH ×3 (09:14→20:21)
[2023-07-19] MEDS: Insulin Glargine 30 UNITS/0.3 ML VIAL SC SCH (09:16)
[2023-07-19] MEDS: Enoxaparin 30 MG (0.3 mL) SYRINGE SC SCH ×2 (09:16→21:57)
[2023-07-19] MEDS: Nystatin 500,000 UNITS/5 ML UDCUP SSW SCH ×4 (09:16→21:57)
[2023-07-19] MEDS: Enoxaparin 100 MG (1 mL) SYRINGE SC SCH ×2 (09:16→21:57)
[2023-07-19] MEDS: Senokot S 8.6-50 MG TAB PO SCH ×2 (09:16→20:21)
[2023-07-19] MEDS: Polyethylene Glycol 3350 17 GM Packet PO SCH (09:20)
[2023-07-19] MEDS: Lidocaine 4% Patch TD SCH (12:43)
[2023-07-19] MEDS: cefTRIAXone\\ROCEPHIN 1 GM in Sodium Chloride 0.9% 100 ML IVPB SCH (14:13)
[2023-07-19] MEDS: DULoxetine 20 MG CAP PO SCH (20:20)
[2023-07-19] MEDS: Ondansetron ODT 4 MG TAB PO PRN (20:20)
[2023-07-19] MEDS: Transdermal Patch Removal TOP SCH (21:58)
[2023-07-20] MEDS: HYDROcodone/Acetaminophen 10/325 mg Tablet PO SCH ×4 (02:38→20:34)
[2023-07-20] MEDS: Acetaminophen 325 MG TAB PO SCH ×3 (09:12→20:33)
[2023-07-20] MEDS: Senokot S 8.6-50 MG TAB PO SCH ×2 (09:12→20:34)
[2023-07-20] MEDS: Ondansetron ODT 4 MG TAB PO PRN (09:12)
[2023-07-20] MEDS: Enoxaparin 100 MG (1 mL) SYRINGE SC SCH ×3 (09:13→22:51)
[2023-07-20] MEDS: Insulin Glargine 30 UNITS/0.3 ML VIAL SC SCH (09:14)
[2023-07-20] MEDS: Enoxaparin 30 MG (0.3 mL) SYRINGE SC SCH ×3 (09:14→22:51)
[2023-07-20] MEDS: Polyethylene Glycol 3350 17 GM Packet PO SCH (09:14)
[2023-07-20] MEDS: Nystatin 500,000 UNITS/5 ML UDCUP SSW SCH ×4 (09:14→22:49)
[2023-07-20] MEDS: Lidocaine 4% Patch TD SCH (12:55)
[2023-07-20] MEDS: cefTRIAXone\\ROCEPHIN 1 GM in Sodium Chloride 0.9% 100 ML IVPB SCH (14:57)
[2023-07-20] MEDS: DULoxetine 20 MG CAP PO SCH (20:33)
[2023-07-20] MEDS: Transdermal Patch Removal TOP SCH (20:35)
[2023-07-21] MEDS: HYDROcodone/Acetaminophen 10/325 mg Tablet PO SCH ×4 (02:07→21:08)
[2023-07-21] MEDS: Acetaminophen 325 MG TAB PO SCH ×3 (08:53→21:07)
[2023-07-21] MEDS: Senokot S 8.6-50 MG TAB PO SCH ×2 (08:53→21:07)
[2023-07-21] MEDS: Metoprolol Tartrate 25 MG TAB PO SCH ×2 (08:53→21:07)
[2023-07-21] MEDS: Insulin Glargine 30 UNITS/0.3 ML VIAL SC SCH (08:54)
[2023-07-21] MEDS: Polyethylene Glycol 3350 17 GM Packet PO SCH (08:54)
[2023-07-21] MEDS: Enoxaparin 100 MG (1 mL) SYRINGE SC SCH ×2 (08:54→21:21)
[2023-07-21] MEDS: Enoxaparin 30 MG (0.3 mL) SYRINGE SC SCH ×2 (08:54→21:21)
[2023-07-21] MEDS: Nystatin 500,000 UNITS/5 ML UDCUP SSW SCH ×4 (08:54→21:21)
[2023-07-21] MEDS: Lidocaine 4% Patch TD SCH (13:02)
[2023-07-21] MEDS: cefTRIAXone\\ROCEPHIN 1 GM in Sodium Chloride 0.9% 100 ML IVPB SCH (15:15)
[2023-07-21] MEDS: DULoxetine 20 MG CAP PO SCH (21:07)
[2023-07-22] MEDS: Transdermal Patch Removal TOP SCH ×2 (00:18→23:55)
[2023-07-22] MEDS: HYDROcodone/Acetaminophen 10/325 mg Tablet PO SCH ×4 (02:37→20:12)
[2023-07-22] MEDS: Metoprolol Tartrate 25 MG TAB PO SCH (08:34)
[2023-07-22] MEDS: Senokot S 8.6-50 MG TAB PO SCH ×2 (08:34→20:12)
[2023-07-22] MEDS: Acetaminophen 325 MG TAB PO SCH ×3 (08:35→20:12)
[2023-07-22] MEDS: Ondansetron ODT 4 MG TAB PO PRN (08:40)
[2023-07-22] MEDS: Polyethylene Glycol 3350 17 GM Packet PO SCH (08:42)
[2023-07-22] MEDS: Nystatin 500,000 UNITS/5 ML UDCUP SSW SCH ×4 (08:42→23:54)
[2023-07-22] MEDS: Insulin Glargine 30 UNITS/0.3 ML VIAL SC SCH (08:42)
[2023-07-22] MEDS: Enoxaparin 30 MG (0.3 mL) SYRINGE SC SCH ×2 (08:42→23:54)
[2023-07-22] MEDS: Enoxaparin 100 MG (1 mL) SYRINGE SC SCH ×2 (08:42→23:54)
[2023-07-22] MEDS: Morphine 4 MG/ML VIAL SLOW IVP PRN (09:29)
[2023-07-22 09:56] VITALS: BMI 38.7
[2023-07-22] MEDS: Lidocaine 4% Patch TD SCH (11:27)
[2023-07-22] MEDS: Metoprolol Tartrate 50 MG TAB PO SCH ×2 (12:28→20:13)
[2023-07-22] MEDS: cefTRIAXone\\ROCEPHIN 1 GM in Sodium Chloride 0.9% 100 ML IVPB SCH (14:21)
[2023-07-22] MEDS: DULoxetine 20 MG CAP PO SCH (20:13)
[2023-07-23] MEDS: HYDROcodone/Acetaminophen 10/325 mg Tablet PO SCH ×4 (01:25→20:30)
[2023-07-23] MEDS: Cyclobenzaprine 10 MG TAB PO PRN ×2 (01:26→08:58)
[2023-07-23] MEDS: Senokot S 8.6-50 MG TAB PO SCH ×2 (08:59→20:31)
[2023-07-23] MEDS: Acetaminophen 325 MG TAB PO SCH ×3 (09:00→20:31)
[2023-07-23] MEDS: Metoprolol Tartrate 50 MG TAB PO SCH ×2 (09:04→20:31)
[2023-07-23] MEDS: Insulin Glargine 30 UNITS/0.3 ML VIAL SC SCH (09:05)
[2023-07-23] MEDS: Enoxaparin 30 MG (0.3 mL) SYRINGE SC SCH ×2 (09:07→20:34)
[2023-07-23] MEDS: Polyethylene Glycol 3350 17 GM Packet PO SCH (09:07)
[2023-07-23] MEDS: Enoxaparin 100 MG (1 mL) SYRINGE SC SCH ×2 (09:07→20:34)
[2023-07-23] MEDS: Nystatin 500,000 UNITS/5 ML UDCUP SSW SCH ×4 (09:07→20:36)
[2023-07-23] MEDS: Lidocaine 4% Patch TD SCH (12:53)
[2023-07-23] MEDS: Ondansetron ODT 4 MG TAB PO PRN (15:34)
[2023-07-23] MEDS: cefTRIAXone\\ROCEPHIN 1 GM in Sodium Chloride 0.9% 100 ML IVPB SCH (15:36)
[2023-07-23] MEDS: DULoxetine 20 MG CAP PO SCH (20:31)
[2023-07-23] MEDS: Transdermal Patch Removal TOP SCH (20:35)
[2023-07-24] MEDS: HYDROcodone/Acetaminophen 10/325 mg Tablet PO SCH ×3 (01:40→13:14)
[2023-07-24 12:02] VITALS: BP 160/82; TEMP 97.5
[2023-07-24] MEDS: Acetaminophen 325 MG TAB PO SCH ×2 (12:59→14:48)
[2023-07-24] MEDS: Enoxaparin 30 MG (0.3 mL) SYRINGE SC SCH (12:59)
[2023-07-24] MEDS: Enoxaparin 100 MG (1 mL) SYRINGE SC SCH (12:59)
[2023-07-24] MEDS: Nystatin 500,000 UNITS/5 ML UDCUP SSW SCH (13:00)
[2023-07-24] MEDS: Polyethylene Glycol 3350 17 GM Packet PO SCH (13:00)
[2023-07-24] MEDS: Insulin Glargine 30 UNITS/0.3 ML VIAL SC SCH (13:00)
[2023-07-24] MEDS: Metoprolol Tartrate 50 MG TAB PO SCH (13:00)
[2023-07-24] MEDS: Lidocaine 4% Patch TD SCH (13:01)
[2023-07-24] MEDS: Senokot S 8.6-50 MG TAB PO SCH (13:01)
[2023-07-24] MEDS: cefTRIAXone\\ROCEPHIN 1 GM in Sodium Chloride 0.9% 100 ML IVPB SCH (13:52)
[2023-07-24] MEDS: Cyclobenzaprine 10 MG TAB PO PRN (14:49)
== END 2023-07-24 15:25 | disposition hospice, home (50) | DRG 853 ==
LOC: ERS 20:26 → CCU 21:07 → IMCU/EMU 06-21 17:59 → CCU 06-27 12:39 → SURG B 07-03 22:59
PROVIDERS: ADMIT Student in an Organized Health Care Education/Training Program; ATTEND Hospitalist
PROC: 4A133R1 Monitoring of Arterial Saturation, Peripheral, Percutaneous Approach (ICD-10-PCS; 2023-06-14)
PROC: 3E03329 Introduction of Other Anti-infective into Peripheral Vein, Percutaneous Approach (ICD-10-PCS; 2023-06-14)
PROC: 02HV33Z Insertion of Infusion Device into Superior Vena Cava, Percutaneous Approach (ICD-10-PCS; principal; 2023-06-16)
PROC: 0T778DZ Dilation of Left Ureter with Intraluminal Device, Via Natural or Artificial Opening Endoscopic (ICD-10-PCS; 2023-06-16)
PROC: 30233J1 Transfusion of Nonautologous Serum Albumin into Peripheral Vein, Percutaneous Approach (ICD-10-PCS; 2023-06-16)
PROC: 3E033XZ Introduction of Vasopressor into Peripheral Vein, Percutaneous Approach (ICD-10-PCS; 2023-06-16)
PROC: 0BH17EZ Insertion of Endotracheal Airway into Trachea, Via Natural or Artificial Opening (ICD-10-PCS; 2023-06-16)
PROC: 5A1945Z Respiratory Ventilation, 24-96 Consecutive Hours (ICD-10-PCS; 2023-06-16)
PROC: 5A0945A Assistance with Respiratory Ventilation, 24-96 Consecutive Hours, High Flow/Velocity Cannula (ICD-10-PCS; 2023-06-23)
PROC: 30233N1 Transfusion of Nonautologous Red Blood Cells into Peripheral Vein, Percutaneous Approach (ICD-10-PCS; 2023-06-24)
PROC: 02HV33Z Insertion of Infusion Device into Superior Vena Cava, Percutaneous Approach (ICD-10-PCS; 2023-06-26)
PROC: 0D1N0Z4 Bypass Sigmoid Colon to Cutaneous, Open Approach (ICD-10-PCS; 2023-06-27)
PROC: 0DBN0ZZ Excision of Sigmoid Colon, Open Approach (ICD-10-PCS; 2023-06-27)
PROC: 0BH17EZ Insertion of Endotracheal Airway into Trachea, Via Natural or Artificial Opening (ICD-10-PCS; 2023-06-27)
PROC: 5A1935Z Respiratory Ventilation, Less than 24 Consecutive Hours (ICD-10-PCS; 2023-06-27)
PROC: 0T778DZ Dilation of Left Ureter with Intraluminal Device, Via Natural or Artificial Opening Endoscopic (ICD-10-PCS; 2023-07-16)
PROC: 0TP98DZ Removal of Intraluminal Device from Ureter, Via Natural or Artificial Opening Endoscopic (ICD-10-PCS; 2023-07-16)
PROC: 0TCB8ZZ Extirpation of Matter from Bladder, Via Natural or Artificial Opening Endoscopic (ICD-10-PCS; 2023-07-16)
DX: A41.50 Gram-negative sepsis, unspecified (principal); E11.10 Type 2 diabetes mellitus with ketoacidosis without coma; G93.41 Metabolic encephalopathy; K63.1 Perforation of intestine (nontraumatic); K68.12 Psoas muscle abscess; J96.01 Acute respiratory failure with hypoxia; C18.9 Malignant neoplasm of colon, unspecified; C78.00 Secondary malignant neoplasm of unspecified lung; E87.1 Hypo-osmolality and hyponatremia; N17.9 Acute kidney failure, unspecified; C79.31 Secondary malignant neoplasm of brain; C78.7 Secondary malignant neoplasm of liver and intrahepatic bile duct; N13.6 Pyonephrosis; D61.818 Other pancytopenia; J93.9 Pneumothorax, unspecified; R65.20 Severe sepsis without septic shock; E11.65 Type 2 diabetes mellitus with hyperglycemia; E87.5 Hyperkalemia; E86.0 Dehydration; I10 Essential (primary) hypertension; K59.00 Constipation, unspecified; E87.6 Hypokalemia; D64.9 Anemia, unspecified; Z66 Do not resuscitate; R53.81 Other malaise; E66.01 Morbid (severe) obesity due to excess calories; E86.9 Volume depletion, unspecified; Z87.891 Personal history of nicotine dependence; Z90.49 Acquired absence of other specified parts of digestive tract; Z79.899 Other long term (current) drug therapy; Z98.51 Tubal ligation status; Z85.3 Personal history of malignant neoplasm of breast; Z68.38 Body mass index [BMI] 38.0-38.9, adult; Z51.5 Encounter for palliative care; Z91.012 Allergy to eggs
CPT/HCPCS: 36415; 36416; 36430; 36600; 49020; 71045; 71275; 74018; 74176; 74177; 74420; 76380; 77012; 80048; 80053; 80076; 80202; 81001; 81003; 81015; 82010; 82140; 82805; 83010; 83036; 83605; 83615; 83735; 83880; 84100; 84145; 84443; 85025; 85046; 85049; 85060; 85300; 85362; 85379; 85384; 85610; 85730; 86140; 86850; 86880; 86900; 86901; 87040; 87070; 87076; 87077; 87086; 87186; 87205; 88305; 88309; 89051; 93005; 93010; 93306; 93970; 94002; 94003; 94640; 96374; 97139; A4314; C1713; C2617; C9113; J0612; J0692; J0696; J0780; J1100; J1200; J1642; J1650; J1815; J1885; J1940; J2060; J2185; J2248; J2250; J2270; J2272; J2405; J2543; J2704; J2916; J3010; J3370; J3475; J3480; J3490; J7030; J7042; J7050; J7120; J7611; P9016; P9035; P9047; Q0162; Q9967; S0028